=== PATIENT | male | born 1970 | race Two or more races ===

== ENCOUNTER 2020-11-17 06:34 | Outpatient (REF) | payer OTHER, SELFPAY ==
[2020-11-17 07:26] LABS: MANUAL DIFF FLAG NO
[2020-11-17 07:43] LABS: Basophils Percent Auto 0.6 % (0-2); Eosinophils Absolute Auto 0.1 X10*3/uL (0.0-0.4); Eosinophils Percent Auto 1.8 % (0-4); Hematocrit 45.2 % (42-52); Hemoglobin 15.2 g/dl (14.0-18.0); Imm Gran Abs Auto 0.02 X10*3/uL (0.00-0.03); Imm Gran Pct Auto 0.3 % (0.0-0.4); Lymphocytes Absolute Auto 3.5 X10*3/uL (1.2-4.9); Lymphocytes Percent Auto 47.9 % (20-40); Mean Corpuscular HGB Conc 33.6 g/dl (31.0-36.0); Mean Corpuscular Hemoglobin 29.2 pg (27.0-33.0); Mean Corpuscular Volume 86.9 fL (80-98); Mean Platelet Volume 11.5 fL (9.4-12.4); Monocytes Percent Auto 13.1 % (2-11); Neutrophils Absolute Auto 2.6 X10*3/uL (2.0-8.3); Neutrophils Percent Auto 36.3 % (45-73); Platelet Count 229 X10*3/uL (160-400); Red Cell Distribution Width 12.4 % (11.0-16.0); White Blood Count 7.3 X10*3/uL (4.8-10.8)
[2020-11-17 07:51] LABS: Alanine Aminotransferase 29 U/L (0-40); Alkaline Phosphatase 62 U/L (39-117); Anion Gap 12 (12-20); Aspartate Amino Transferase 23 U/L (5-37); Bilirubin Total 0.8 mg/dL (0.0-1.0); Blood Urea Nitrogen 15 mg/dL (9-16); Calcium 9.6 mg/dL (8.4-10.2); Carbon Dioxide 27 mmol/L (22-29); Chloride 104 mmol/L (96-108); Cholesterol 219 mg/dL; Estimated Glomerular Filt Rate > 60; Glucose Fasting 98 mg/dL (60-99); HDL Cholesterol 36 mg/dL; LDL Cholesterol Calculated 143 mg/dl; Potassium 4.3 mmol/L (3.3-5.1); Sodium 139 mmol/L (135-145); Total Protein 6.5 g/dL (6.5-8.0); Triglycerides 203 mg/dL
[2020-11-17 08:16] LABS: TSH reflex Free T4 4.69 uIU/mL (0.32-4.0); Vitamin D 25-OH Total 35.3 ng/mL (>30)
[2020-11-17 08:49] LABS: Prostate Specific Antigen Scr 0.34 ng/mL (<0.05-4.0)
[2020-11-17 11:01] LABS: Glucose Urine UA NEG (NEG); Leukocyte Esterase Urine NEG (NEG); Nitrite Urine NEG (NEG); PH 5.5 (5.0-8.0); Specific Gravity - Urine >= 1.030 (1.005-1.025); Urine Blood NEG (NEG); Urine Ketones NEG (NEG); Urine Protein NEG (NEG-TRACE)
[2020-11-17 11:03] LABS: Appearance Urine CLEAR; Color Urine YELLOW
== END 2020-11-17 06:35 | disposition home or self-care (01) ==
LOC: HO.LAB 06:34
PROVIDERS: PCP Internal Medicine; Visit Provider Internal Medicine
DX: Z00.00 Encounter for general adult medical examination without abnormal findings (principal); Z12.5 Encounter for screening for malignant neoplasm of prostate; E78.00 Pure hypercholesterolemia, unspecified; E55.9 Vitamin D deficiency, unspecified; E66.9 Obesity, unspecified
CPT/HCPCS: 36415; 80053; 80061; 81003; 82306; 84153; 84439; 84443; 85025

== ENCOUNTER 2021-08-06 10:46 | Outpatient (REF) | payer OTHER, SELFPAY ==
[2021-08-06 11:14] LABS: MANUAL DIFF FLAG NO
[2021-08-06 11:54] LABS: Basophils Percent Auto 0.6 % (0-2); Eosinophils Absolute Auto 0.1 X10*3/uL (0.0-0.4); Eosinophils Percent Auto 1.3 % (0-4); Hematocrit 45.1 % (42.0-52.0); Imm Gran Abs Auto 0.02 X10*3/uL (0.00-0.03); Imm Gran Pct Auto 0.4 % (0.0-0.4); Lymphocytes Absolute Auto 2.6 X10*3/uL (1.2-4.9); Lymphocytes Percent Auto 49.5 % (20-40); Mean Corpuscular HGB Conc 33.3 g/dl (31.0-36.0); Mean Corpuscular Hemoglobin 28.7 pg (27.0-33.0); Mean Corpuscular Volume 86.4 fL (80.0-98.0); Mean Platelet Volume 11.6 fL (9.4-12.4); Monocytes Absolute Auto 0.6 X10*3/uL (0.1-1.2); Monocytes Percent Auto 11.8 % (2-11); Neutrophils Absolute Auto 1.9 x10*3/uL (2.0-8.3); Neutrophils Percent Auto 36.4 % (45-73); Platelet Count 244 X10*3/uL (160-400); Red Blood Count 5.22 X10*6/uL (4.60-5.80); Red Cell Distribution Width 12.6 % (11.0-16.0); White Blood Count 5.2 X10*3/uL (4.8-10.8)
[2021-08-06 11:54] LABS: Appearance Urine CLEAR; Color Urine YELLOW; Glucose Urine UA NEG (NEG); Leukocyte Esterase Urine NEG (NEG); Nitrite Urine NEG (NEG); PH 5.5 (5.0-8.0); Specific Gravity - Urine >= 1.030 (1.005-1.025); Urine Blood NEG (NEG); Urine Ketones NEG (NEG); Urine Protein TRACE MG/DL (NEG-TRACE)
[2021-08-06 12:35] LABS: Prostate Specific Antigen Scr 0.34 ng/mL (<0.05-4.0); TSH reflex Free T4 2.94 uIU/mL (0.32-4.0); Vitamin D 25-OH Total 48.2 ng/mL (>30)
[2021-08-06 12:36] LABS: HBS Num1 > 1000.00 mIU/mL (0-7.99); HBc Num1 9.29 S/CO (0.00-0.79); HBsAGNum1 0.24 S/CO (0.00-0.99); HIV AB/AG Nonreactive (Nonreactive); HIV Num 1 0.06 S/CO (0.00-0.99); Hepatitis B Surface Antigen Negative (Negative); ~HepC Num1 0.06 S/CO (0.00-0.79); ~Hepatitis B Surface Antibody REACTIVE (Nonreactive); ~Hepatitis C Antibody Nonreactive (Nonreactive)
[2021-08-06 12:37] LABS: Syphilis Screen Nonreactive (Nonreactive)
[2021-08-06 12:40] LABS: Alanine Aminotransferase 27 U/L (0-40); Albumin Level 4.1 g/dL (3.5-5.0); Alkaline Phosphatase 73 U/L (39-117); Anion Gap 12 (12-20); Aspartate Amino Transferase 18 U/L (5-37); Bilirubin Total 0.4 mg/dL (0.0-1.0); Blood Urea Nitrogen 19 mg/dL (9-16); Calcium 9.7 mg/dL (8.4-10.2); Carbon Dioxide 27 mmol/L (22-29); Chloride 105 mmol/L (96-108); Cholesterol 217 mg/dL; Estimated Glomerular Filt Rate > 60; Glucose Fasting 109 mg/dL (60-99); HDL Cholesterol 31 mg/dL; LDL Cholesterol Calculated 149 mg/dl; Potassium 4.7 mmol/L (3.3-5.1); Sodium 139 mmol/L (135-145); Total Protein 6.6 g/dL (6.5-8.0); Triglycerides 186 mg/dL
[2021-08-06 14:32] LABS: CT PCR NOT DETECTED (Not Detect.); NG PCR NOT DETECTED (Not Detect.)
[2021-08-06 14:34] LABS: HBc Num2 9.59 S/CO; HBc Num3 9.71 S/CO; Hepatitis B Core Antibody Reactive (Nonreactive)
[2021-08-12 16:11] LABS: HSV 1 IgM IFA Negative (Negative); HSV 2 IgM IFA Negative (Negative)
== END 2021-08-06 10:47 | disposition home or self-care (01) ==
LOC: HO.LAB 10:46
PROVIDERS: PCP Internal Medicine; Visit Provider Internal Medicine
DX: Z00.00 Encounter for general adult medical examination without abnormal findings (principal); E78.00 Pure hypercholesterolemia, unspecified; E55.9 Vitamin D deficiency, unspecified; Z20.2 Contact with and (suspected) exposure to infections with a predominantly sexual mode of transmission
CPT/HCPCS: 80053; 80061; 81003; 82306; 84153; 84443; 85025; 86695; 86696; 86704; 86706; 86780; 86803; 87340; 87389; 87491; 87591

== ENCOUNTER 2022-03-15 08:12 | Outpatient (REF) | payer MEDICAID, SELFPAY ==
[2022-03-15 08:33] LABS: MANUAL DIFF FLAG NO
[2022-03-15 09:16] LABS: Basophils Percent Auto 0.5 % (0-2); Eosinophils Absolute Auto 0.1 X10*3/uL (0.0-0.4); Eosinophils Percent Auto 1.1 % (0-4); Hematocrit 48.1 % (42.0-52.0); Hemoglobin 15.5 g/dl (14.0-18.0); Imm Gran Abs Auto 0.02 X10*3/uL (0.00-0.03); Imm Gran Pct Auto 0.3 % (0.0-0.4); Lymphocytes Absolute Auto 2.7 X10*3/uL (1.2-4.9); Lymphocytes Percent Auto 44.4 % (20-40); Mean Corpuscular HGB Conc 32.2 g/dl (31.0-36.0); Mean Platelet Volume 11.2 fL (9.4-12.4); Monocytes Absolute Auto 0.9 X10*3/uL (0.1-1.2); Monocytes Percent Auto 15.3 % (2-11); Neutrophils Absolute Auto 2.4 x10*3/uL (2.0-8.3); Neutrophils Percent Auto 38.4 % (45-73); Platelet Count 232 X10*3/uL (160-400); Red Blood Count 5.53 X10*6/uL (4.60-5.80); Red Cell Distribution Width 12.6 % (11.0-16.0); White Blood Count 6.2 X10*3/uL (4.8-10.8)
[2022-03-15 09:20] LABS: Estimated Average Glucose 108 mg/dL; Hemoglobin A1c % 5.4 %
[2022-03-15 09:43] LABS: Alanine Aminotransferase 24 U/L (0-40); Albumin Level 4.3 g/dL (3.5-5.0); Alkaline Phosphatase 62 U/L (39-117); Anion Gap 18 (12-20); Aspartate Amino Transferase 18 U/L (5-37); Bilirubin Total 0.6 mg/dL (0.0-1.0); Blood Urea Nitrogen 16 mg/dL (9-16); Calcium 9.6 mg/dL (8.4-10.2); Carbon Dioxide 27 mmol/L (22-29); Chloride 101 mmol/L (96-108); Cholesterol 214 mg/dL; Estimated Glomerular Filt Rate > 60; Glucose Fasting 103 mg/dL (60-99); HDL Cholesterol 34 mg/dL; LDL Cholesterol Calculated 126 mg/dl; Potassium 4.6 mmol/L (3.3-5.1); Sodium 141 mmol/L (135-145); Total Protein 6.9 g/dL (6.5-8.0); Triglycerides 272 mg/dL
[2022-03-15 10:06] LABS: Prostate Specific Antigen 0.33 ng/mL (<0.05-4.0); TSH reflex Free T4 3.58 uIU/mL (0.32-4.0); Vitamin D 25-OH Total 34.3 ng/mL (>30)
== END 2022-03-15 08:13 | disposition home or self-care (01) ==
LOC: HO.LAB 08:12
PROVIDERS: PCP Internal Medicine; Visit Provider Internal Medicine
DX: Z12.5 Encounter for screening for malignant neoplasm of prostate (principal); E78.00 Pure hypercholesterolemia, unspecified; N40.1 Benign prostatic hyperplasia with lower urinary tract symptoms; R39.11 Hesitancy of micturition; E55.9 Vitamin D deficiency, unspecified; I10 Essential (primary) hypertension; R73.01 Impaired fasting glucose
CPT/HCPCS: 36415; 80053; 80061; 82306; 83036; 84153; 84443; 85025

== ENCOUNTER 2022-11-16 07:31 | Outpatient (REF) | payer OTHER, SELFPAY ==
[2022-11-16 07:46] LABS: MANUAL DIFF FLAG NO
[2022-11-16 07:52] LABS: Basophils Percent Auto 0.3 % (0-2); Eosinophils Absolute Auto 0.1 X10*3/uL (0.0-0.4); Eosinophils Percent Auto 1.2 % (0-4); Hematocrit 45.7 % (42.0-52.0); Hemoglobin 15.1 g/dl (14.0-18.0); Imm Gran Abs Auto 0.02 X10*3/uL (0.00-0.03); Imm Gran Pct Auto 0.3 % (0.0-0.4); Lymphocytes Absolute Auto 2.8 X10*3/uL (1.2-4.9); Lymphocytes Percent Auto 47.8 % (20-40); Mean Corpuscular Hemoglobin 28.4 pg (27.0-33.0); Mean Corpuscular Volume 86.1 fL (80.0-98.0); Mean Platelet Volume 10.8 fL (9.4-12.4); Monocytes Absolute Auto 0.9 X10*3/uL (0.1-1.2); Monocytes Percent Auto 14.6 % (2-11); Neutrophils Absolute Auto 2.1 x10*3/uL (2.0-8.3); Neutrophils Percent Auto 35.8 % (45-73); Platelet Count 243 X10*3/uL (160-400); Red Blood Count 5.31 X10*6/uL (4.60-5.80); Red Cell Distribution Width 12.7 % (11.0-16.0); White Blood Count 5.8 X10*3/uL (4.8-10.8)
[2022-11-16 08:01] LABS: Estimated Average Glucose 105 mg/dL; Hemoglobin A1c % 5.3 %
[2022-11-16 08:31] LABS: Alanine Aminotransferase 34 U/L (0-40); Alkaline Phosphatase 67 U/L (39-117); Anion Gap 12 (12-20); Aspartate Amino Transferase 26 U/L (5-37); Bilirubin Total 0.7 mg/dL (0.0-1.0); Blood Urea Nitrogen 19 mg/dL (9-16); Calcium 9.3 mg/dL (8.4-10.2); Carbon Dioxide 27 mmol/L (22-29); Chloride 105 mmol/L (96-108); Cholesterol 221 mg/dL; Estimated Glomerular Filt Rate > 60; Glucose Fasting 103 mg/dL (60-99); HDL Cholesterol 32 mg/dL; LDL Cholesterol Calculated 156 mg/dl; Potassium 4.3 mmol/L (3.3-5.1); Sodium 140 mmol/L (135-145); Total Protein 6.5 g/dL (6.5-8.0); Triglycerides 165 mg/dL
[2022-11-16 08:51] LABS: Prostate Specific Antigen 0.31 ng/mL (<0.05-4.0); TSH reflex Free T4 4.38 uIU/mL (0.32-4.0); Vitamin D 25-OH Total 33.4 ng/mL (>30)
[2022-11-16 09:22] LABS: Free T4 (Free Thyroxine) 0.96 ng/dL (0.71-1.85)
[2022-11-16 12:57] LABS: Appearance Urine Clear; Color Urine Yellow; Glucose Urine UA Negative (Negative); Leukocyte Esterase Urine Negative (Negative); Nitrite Urine Negative (Negative); Urine Blood Negative (Negative); Urine Ketones Negative (Negative); Urine Protein Negative (Neg-Trace)
== END 2022-11-16 07:32 | disposition home or self-care (01) ==
LOC: HO.LAB 07:31
PROVIDERS: PCP Internal Medicine; Visit Provider Internal Medicine
DX: Z00.00 Encounter for general adult medical examination without abnormal findings (principal); Z12.5 Encounter for screening for malignant neoplasm of prostate; I10 Essential (primary) hypertension; E78.00 Pure hypercholesterolemia, unspecified; E55.9 Vitamin D deficiency, unspecified; R73.01 Impaired fasting glucose; N40.0 Benign prostatic hyperplasia without lower urinary tract symptoms
CPT/HCPCS: 36415; 80053; 80061; 81003; 82306; 83036; 84153; 84439; 84443; 85025

== ENCOUNTER 2023-01-31 12:43 | Outpatient (AMB) | payer OTHER, SELFPAY ==
[2023-01-31 12:44] VITALS: BP 124/70; PULSE 66; O2SAT 96; BMI 31.4
--- NOTE | 2023-01-31 12:44 | A.OFFPC_ITS ---
Vital Signs 01/31/23 12:44 Height 6 ft 1 in Weight 238 lb BMI 31.4 BP 124/70 Blood Pressure Location Lt brachial Position Sitting Pulse 66 Pulse Source Pulse Oximeter Pulse Oximetry (%) 96 Oxygen Delivery Method Room Air Intake Visit Reasons: PE Bpm Architect Required: No Accompanied by: Self / Same As Patient Allergies No Known Allergies Allergy (Mild, Verified 01/31/23 13:01) NOT APPLICABLE Medication List - Last Reconciled 01/31/23 by Frank Rosenthal MD ascorbate calcium (vitamin C) 500 mg PO DAILY cholecalciferol (vitamin D3) 25 mcg PO DAILY Tobacco use date assessed: 01/31/23 Dental Screening Dental Screen Date: 01/31/23 Did you have a dental visit in the last 12 months?: Yes Did you have a dental problem in the last 6 months where you did not have access to dental care?: No Was dental information given to patient?: Patient has dentist HPI PE HPI Details Patient comes in today for his annual physical examination States that he feels okay He denies any headaches or dizziness Denies any chest pains, no SOB No nausea/vomiting, no abdominal pain No change in bowel habits noted Denies any acute urinary symptoms Had his labs done a few months ago - to discuss his results Had his screening colonoscopy last done with Dr. Anderson on 12/18/2018 - (+) tubular adenoma so he is recommended to get a repeat colonoscopy in 5 years (2023) [facility] Medical History (Updated 01/31/23 @ 13:14 by Frank Rosenthal MD) Gynecomastia Obesity (BMI 30-39.9) Pure hypercholesterolemia Vitamin D deficiency Surgical History (Updated 01/31/23 @ 12:55 by Frank Rosenthal MD) History of breast surgery (~06/2016) History of right knee surgery Hx of colonoscopy (~12/18/18) Hx of tonsillectomy Family History Mother Dementia Paget's disease CVA (cerebral vascular accident) Maternal Grandmother Hypertension Sister Asthma Brother Hypertension Social History Housing: Apartment Alcohol intake: former Patient Tobacco Use Status: Never used Tobacco e-Cigarette/Vaping Use: Never Used Second Hand Smoke Exposure: No service: No Current occupational status: unemployed Cognitive needs: No Hearing needs: No Vision needs: No Questionnaire PHQ-9 Over the last 2 weeks, how often have you been bothered by any of the following problems? 1. Little interest or pleasure in doing things: not at all 2. Feeling down, depressed, or hopeless: not at all 3. Trouble falling or staying asleep, or sleeping too much: not at all 4. Feeling tired or having little energy: not at all 5. Poor appetite or overeating: not at all 6. Feeling bad about yourself - or that you are a failure or have let yourself or your family down: not at all 7. Trouble concentrating on things, such as reading the newspaper or watching television: not at all 8. Moving or speaking so slowly that other people could have noticed. Or the opposite - being so fidgety or restless that you have been moving around a lot more than usual: not at all 9. Thoughts that you would be better off or of hurting yourself in some way: not at all Total score: 0 Depression Screening Interpretation: Negative 07228 - PHQ-9 Billing: Yes Source: Developed by Drs. Manny Gomez, Melanie Maher, John Castañeda and colleagues, with an educational jean-paul from [employer]. Thrive Questionnaire Date Thrive assessed: 01/31/23 I am a: Patient What is your living situation today?: I have a steady place to live Within the past 12 months, did the food you bought not last and you didn't have the money to get more?: Never true Within the past 12 months, did you worry whether your food would run out before you got money to buy more?: Never true Do you have trouble paying for medicines?: No Do you have trouble getting transportation to medical appointments?: No Do you have trouble paying your heating and electricity bill?: No Do you have trouble taking care of your child, family member or friend?: No Do you have trouble with day-to-day activities such as bathing, preparing meals, shopping, managing finances, etc.?: No Are you currently unemployed and looking for a job?: No Are you interested in more education?: No Please select the resources that you would like help with: None Currently or been in a relationship where the following occur: no concerns reported AUDIT C Alcohol Use Questionnaire (AUDIT-C) 1. How often do you have a drink containing alcohol?: Never 3. How often do you have six or more drinks on one occasion?: Never Total Score: 0 Score Reviewed/Action Taken: Yes DONY-7 AMB Questionnaire DONY-7 Date DONY - 7 assessed: 01/31/23 Feeling nervous, anxious, or on edge: 0 = Not at all Not being able to stop or control worryin = Not at all Worrying too much about different things: 0 = Not at all Trouble relaxin = Not at all Being so restless that it is hard to sit still: 0 = Not at all Becoming easily annoyed or irritable: 0 = Not at all Feeling afraid as if something awful might happen: 0 = Not at all Total DONY-7 score (0-4 normal; 5-9 mild; 10-14 moderate; 15-21 severe): 0 Source: Developed by Drs. Manny Gomez, Melanie Maher, John Castañeda and colleagues, with an educational jean-paul from [employer]. Review of Systems Const Denies chills, Denies fatigue, Denies fever(s), Denies headache(s), Denies malaise and Denies weakness Eyes Denies blurry vision, Denies change in vision, Denies irritation and Denies itchy eyes ENT Denies dysphagia, Denies dizziness, Denies otalgia, Denies headache(s), Denies nasal congestion, Denies neck pain, Denies odynophagia and Denies sore throat Card Denies chest pain, Denies rapid heart rate, Denies irregular heart rhythm, Denies palpitations and Denies dyspnea Resp Denies chest congestion, Denies cough, Denies dyspnea and Denies wheezing GI Denies abdominal pain, Denies bloating, Denies constipation, Denies dysphagia, Denies heartburn, Denies diarrhea, Denies nausea, Denies odynophagia and Denies vomiting Denies hematuria, Denies difficulty urinating, Denies dysuria, Denies urinary frequency and Denies urinary urgency Musc Denies back pain, Denies arthralgias, Denies joint swelling, Denies muscle weakness and Denies neck pain Skin/Breast Denies change in pigmentation, Denies lesions, Denies rash and Denies unusual bruising Neuro Denies dizziness, Denies headache(s), Denies paresthesias and Denies weakness Endo Denies fatigue and Denies palpitations Aller/Immun Denies itchy eyes and Denies wheezing Physical exam (Primary Care) Vital Signs: Oxygen Delivery Method Room Air 01/31/23 12:44 BMI result Body Mass Index 31.4 Tobacco/Smoking Status: Tobacco use Status Tobacco use date assessed 08/09/22 08/09/22 13:25 Patient Tobacco Use Status Never used Tobacco 08/09/22 13:25 e-Cigarette/Vaping Use Never Used 08/09/22 13:25 Depression Screening Interpretation: Negative Thrive Assessment: Date of Thrive Assessment Date Thrive assessed 08/09/22 08/09/22 13:25 Currently or been in a relationship where the following occur: no concerns reported Const General: no acute distress, alert and awake Orientation/consciousness: patient oriented x3 HENMT Head: Yes normocephalic and Yes atraumatic Ears: external ears normal, TM's normal bilaterally and EAC's normal General nose exam: No nasal discharge present Face and sinus: Yes normal facial exam and Yes sinuses nontender Teeth and gingiva: dentition normal Throat: Yes posterior oropharynx normal and Yes tonsils normal (no TP conges tion) Eyes Eyelids: Yes eyelids normal Conjunctivae: conjunctivae normal Pupils: Equal, round and reactive pupils present EOM: EOMs intact bilaterally Neck Neck: Yes no lymphadenopathy and Yes supple Thyroid: Thyroid normal Resp Auscultation: clear to auscultation bilaterally, no rales and no wheezes Cardio Rate: regular rate Rhythm: regular rhythm Heart sounds: no murmurs GI Palpation (GI): Soft to palpation, nontender and No hepatosplenomegaly present Auscultation: normal bowel sounds General: Yes no CVA tenderness Back/Spine/Pelvis Back: no CVA tenderness Thoracic/Lumbar Spine: thoracic and lumbar spine normal to inspection Skin Lesions: no lesions Rashes: no rashes Neuro General: patient oriented x3, moves all extremities, no focal motor deficits and CN's II-XI intact bilaterally Cranial nerves: Yes Equal, round and reactive pupils present Cognition (Neuro): normal cognition Gait exam (Neuro): Normal gait present Extrem General: Yes no clubbing, cyanosis or edema Results Reviewed Results Reviewed: Laboratory Tests 11/16/22 11/16/22 11/16/22 07:44 07:44 07:44 WBC 5.8 Hgb 15.1 Hct 45.7 Plt Count 243 Sodium 140 Potassium 4.3 Creatinine 0.92 Estimated GFR > 60 Fasting Glucose 103 H Hemoglobin A1c % 5.3 Calcium 9.3 AST 26 ALT 34 Triglycerides 165 Cholesterol 221 LDL Cholesterol, Calc 156 HDL Cholesterol 32 Prostate Specific Ag 0.31 25-OH Vitamin D Total 33.4 TSH 4.38 H Free T4 0.96 Ur Specific [place] Urine Protein Urine Glucose (UA) Urine Blood 11/16/22 09:10 WBC Hgb Hct Plt Count Sodium Potassium Creatinine Estimated GFR Fasting Glucose Hemoglobin A1c % Calcium AST ALT Triglycerides Cholesterol LDL Cholesterol, Calc HDL Cholesterol Prostate Specific Ag 25-OH Vitamin D Total TSH Free T4 Ur Specific [place] 1.020 Urine Protein Negative Urine Glucose (UA) Negative Urine Blood Negative Assessment and Plan Assessment & Plan (1) Annual physical exam: Code(s): Z00.00 - Encounter for general adult medical examination without abnormal findings Plan: Results of his labs done a few months ago reviewed and discussed with patient He last had his screening colonoscopy done in 11/2018 and is due for repeat colonoscopy in 5 years (2023) due to (+) tubular adenoma on his previous colonoscopy (2) Pure hypercholesterolemia: Code(s): E78.00 - Pure hypercholesterolemia, unspecified Plan: Is advised that his cholesterol levels are still elevated on his recent labs and that his LDL cholesterol has increased from previous and is now at 156 mg/dl Patient would like to continue with diet modification for now and put off being started on cholesterol-lowering medication at this time Reinforced low cholesterol diet - per request, low cholesterol diet info provided to patient Will recheck his labs and fasting lipids in 6 months for follow up (3) Impaired fasting glucose: Code(s): R73.01 - Impaired fasting glucose Plan: FBS was still slightly elevated at 103 mg/dl on his recent labs but his HgbA1c remained normal at 5.3% when checked a few months ago Reinforced low calorie diet/exercise as tolerated (4) Vitamin D deficiency: Code(s): E55.9 - Vitamin D deficiency, unspecified Plan: Corrected - continue Vitamin D3 1000 units QD (5) Elevated TSH: Code(s): R79.89 - Other specified abnormal findings of blood chemistry Plan: TSH level is again slightly elevated but his free T4 level remains normal on his recent labs Patient is clinically euthyroid Will recheck his TFTs in 6 months for follow up (6) Benign prostatic hyperplasia with urinary hesitancy: Code(s): N40.1 - Benign prostatic hyperplasia with lower urinary tract symptoms; R39.11 - Hesitancy of micturition Plan: Serum PSA rechecked a few months ago came out normal again He was previously started on a trial of Tamsulosin 0.4 mg Q HS; patient states that his urinary symptoms did not really improve much with Rx and he stopped taking it several months ago Notes that his urinary symptoms have somehow improved since and he has HAD no problems going to the bathroom Will consider urology referral if symptoms get worse again (7) Obesity (BMI 30-39.9): Code(s): E66.9 - Obesity, unspecified Plan: Reinforced diet/exercise as tolerated/lose weight Plan Follow up in 6 months Orders: Orders Comprehensive [place]. Panel Fast 6 Months E78.00 - Pure hypercholesterolemia, unspecified Lipid Panel 6 Months E78.00 - Pure hypercholesterolemia, unspecified Hemoglobin A1c 6 Months R73.01 - Impaired fasting glucose Free T4 (Free Thyroxine) 6 Months R79.89 - Other specified abnormal findings of blood chemistry Thyroid Stimulating Hormone 6 Months R79.89 - Other specified abnormal findings of blood chemistry Coding Level of Care Code Est Pt Prev Care 40-64y([id number]) Diagnoses Annual physical exam Z00.00 Pure hypercholesterolemia E78.00 Impaired fasting glucose R73.01 Vitamin D deficiency E55.9 Elevated TSH R79.89 Benign prostatic hyperplasia with urinary hesitancy N40.1; R39.11 Obesity (BMI 30-39.9) E66.9
== END 2023-01-31 13:17 | disposition home or self-care (01) ==
PROVIDERS: Visit Provider Internal Medicine
DX: Z00.00 Encounter for general adult medical examination without abnormal findings (principal); E78.00 Pure hypercholesterolemia, unspecified; E55.9 Vitamin D deficiency, unspecified; Z68.31 Body mass index [BMI] 31.0-31.9, adult; R73.01 Impaired fasting glucose; R79.89 Other specified abnormal findings of blood chemistry; N40.1 Benign prostatic hyperplasia with lower urinary tract symptoms; R39.11 Hesitancy of micturition; E66.9 Obesity, unspecified
CPT/HCPCS: 99396

== ENCOUNTER 2023-07-27 08:42 | Outpatient (REF) | payer OTHER, SELFPAY ==
[2023-07-27 09:44] LABS: Estimated Average Glucose 108 mg/dL; Hemoglobin A1c % 5.4 % (<6.0)
[2023-07-27 10:15] LABS: Alanine Aminotransferase 29 U/L (0-40); Alkaline Phosphatase 64 U/L (39-117); Anion Gap 10 (12-20); Aspartate Amino Transferase 19 U/L (5-37); Bilirubin Total 0.6 mg/dL (0.0-1.0); Blood Urea Nitrogen 17 mg/dL (9-16); Calcium 9.3 mg/dL (8.4-10.2); Carbon Dioxide 30 mmol/L (22-29); Chloride 104 mmol/L (96-108); Cholesterol 217 mg/dL (<200); Estimated Glomerular Filt Rate > 60; Glucose Fasting 116 mg/dL (60-99); HDL Cholesterol 32 mg/dL (>40); LDL Cholesterol Calculated 123 mg/dL (<100); Potassium 4.1 mmol/L (3.3-5.1); Sodium 140 mmol/L (135-145); Total Protein 6.8 g/dL (6.5-8.0); Triglycerides 312 mg/dL (<150)
[2023-07-27 10:31] LABS: Thyroid Stimulating Hormone 3.27 uIU/mL (0.32-4.0)
[2023-07-27 13:39] LABS: Appearance Urine Clear; Color Urine Yellow; Glucose Urine UA Negative (Negative); Leukocyte Esterase Urine Negative (Negative); Nitrite Urine Negative (Negative); PH 5.5 (5.0-9.0); Urine Blood Negative (Negative); Urine Ketones Negative (Negative); Urine Protein Negative (Neg-Trace)
== END 2023-07-27 08:43 | disposition home or self-care (01) ==
LOC: HO.LAB 08:42
PROVIDERS: PCP Internal Medicine; Visit Provider Internal Medicine
DX: E78.00 Pure hypercholesterolemia, unspecified (principal); R73.01 Impaired fasting glucose; R79.89 Other specified abnormal findings of blood chemistry
CPT/HCPCS: 36415; 80053; 80061; 81003; 83036; 84439; 84443

== ENCOUNTER 2023-08-03 09:35 | Outpatient (AMB) | payer OTHER, SELFPAY ==
[2023-08-03 10:13] VITALS: BP 116/90; PULSE 66; O2SAT 97; BMI 31.7
--- NOTE | 2023-08-03 10:13 | MHC.PC.OV ---
Vital Signs 08/03/23 10:13 Height 6 ft 1 in Weight 240 lb 4 oz BMI 31.7 BP 116/90 H Blood Pressure Location Lt brachial Position Sitting Pulse 66 Pulse Source Pulse Oximeter Pulse Oximetry (%) 97 Oxygen Delivery Method Room Air Intake Visit Reasons: 6 month f/u Subcontract Administrator Required: No Accompanied by: Self / Same As Patient Allergies No Known Allergies Allergy (Mild, Verified 08/03/23 10:50) NOT APPLICABLE Medication List - Last Reconciled 08/03/23 by Frank Rosenthal MD ascorbate calcium (vitamin C) 500 mg PO DAILY cholecalciferol (vitamin D3) 25 mcg PO DAILY Tobacco use date assessed: 08/03/23 Dental Screening Dental Screen Date: 08/03/23 Did you have a dental visit in the last 12 months?: Yes Did you have a dental problem in the last 6 months where you did not have access to dental care?: No Was dental information given to patient?: Patient has dentist HPI 6 month f/u HPI Details Patient comes in today for his follow up visit States that he feels okay He denies any headaches or dizziness Denies any chest pains, no shortness of breath No nausea/vomiting, no abdominal pain No change in bowel habits noted Had his follow-up labs done last week - to discuss his results [facility] Medical History Gynecomastia Obesity (BMI 30-39.9) Vitamin D deficiency Pure hypercholesterolemia Surgical History Hx of colonoscopy (~12/18/18) History of breast surgery (~06/2016) History of right knee surgery Hx of tonsillectomy Family History Mother Dementia Paget's disease CVA (cerebral vascular accident) Maternal Grandmother Hypertension Sister Asthma Brother Hypertension Social History Housing: Apartment Alcohol intake: former Patient Tobacco Use Status: Never used Tobacco e-Cigarette/Vaping Use: Never Used Second Hand Smoke Exposure: No service: No Current occupational status: unemployed Cognitive needs: No Hearing needs: No Vision needs: No Questionnaire PHQ-9 Over the last 2 weeks, how often have you been bothered by any of the following problems? 1. Little interest or pleasure in doing things: not at all 2. Feeling down, depressed, or hopeless: not at all 3. Trouble falling or staying asleep, or sleeping too much: not at all 4. Feeling tired or having little energy: not at all 5. Poor appetite or overeating: not at all 6. Feeling bad about yourself - or that you are a failure or have let yourself or your family down: not at all 7. Trouble concentrating on things, such as reading the newspaper or watching television: not at all 8. Moving or speaking so slowly that other people could have noticed. Or the opposite - being so fidgety or restless that you have been moving around a lot more than usual: not at all 9. Thoughts that you would be better off or of hurting yourself in some way: not at all Total score: 0 Depression Screening Interpretation: Negative Depression Screening Done: Yes 46379 - PHQ-9 Billing: Yes Source: Developed by Drs. Manny Gomez, Melanie Maher, John Castañeda and colleagues, with an educational jean-paul from [employer]. Thrive Questionnaire Date Thrive assessed: 08/03/23 I am a: Patient What is your living situation today?: I have a steady place to live Within the past 12 months, did the food you bought not last and you didn't have the money to get more?: Never true Within the past 12 months, did you worry whether your food would run out before you got money to buy more?: Never true Do you have trouble paying for medicines?: No Do you have trouble getting transportation to medical appointments?: No Do you have trouble paying your heating and electricity bill?: No Do you have trouble taking care of your child, family member or friend?: No Do you have trouble with day-to-day activities such as bathing, preparing meals, shopping, managing finances, etc.?: No Are you currently unemployed and looking for a job?: No Are you interested in more education?: No Please select the resources that you would like help with: None Currently or been in a relationship where the following occur: no concerns reported THRIVE Score: 0 AUDIT C Alcohol Use Questionnaire (AUDIT-C) 1. How often do you have a drink containing alcohol?: Never 3. How often do you have six or more drinks on one occasion?: Never Total Score: 0 Score Reviewed/Action Taken: Yes DONY-7 AMB Questionnaire DONY-7 Date DONY - 7 assessed: 08/03/23 Feeling nervous, anxious, or on edge: 0 = Not at all Not being able to stop or control worryin = Not at all Worrying too much about different things: 0 = Not at all Trouble relaxin = Not at all Being so restless that it is hard to sit still: 0 = Not at all Becoming easily annoyed or irritable: 0 = Not at all Feeling afraid as if something awful might happen: 0 = Not at all Total DONY-7 score (0-4 normal; 5-9 mild; 10-14 moderate; 15-21 severe): 0 Source: Developed by Drs. Manny Gomez, Melanie Maher, John Castañeda and colleagues, with an educational jean-paul from [employer]. Review of Systems Const Denies chills, Denies fatigue, Denies fever(s) and Denies headache(s) ENT Denies dysphagia, Denies dizziness, Denies otalgia, Denies headache(s), Denies neck pain, Denies odynophagia and Denies sore throat Card Denies chest pain, Denies palpitations and Denies dyspnea Resp Denies cough and Denies dyspnea GI Denies abdominal pain, Denies constipation, Denies dysphagia, Denies heartburn, Denies diarrhea, Denies nausea, Denies odynophagia and Denies vomiting Denies dysuria, Denies nocturia and Denies urinary frequency Musc Denies back pain, Denies arthralgias and Denies neck pain Skin/Breast Denies rash Neuro Denies dizziness and Denies headache(s) Endo Denies fatigue and Denies palpitations Physical exam (Primary Care) Vital Signs: Last Vital Signs Pulse 66 08/03/23 10:13 BP 116/90 H 08/03/23 10:13 Pulse Ox 97 08/03/23 10:13 Oxygen Delivery Method Room Air 08/03/23 10:13 BMI result Body Mass Index 31.7 Tobacco/Smoking Status: Tobacco use Status Tobacco use date assessed 08/03/23 08/03/23 10:14 Patient Tobacco Use Status Never used Tobacco 08/03/23 10:14 e-Cigarette/Vaping Use Never Used 08/03/23 10:14 PHQ-9: PHQ-9 Score PHQ-9: Total score 0 08/03/23 10:53 Depression Screening Interpretation: Negative Thrive Assessment: Date of Thrive Assessment Date Thrive assessed 08/03/23 08/03/23 10:14 Currently or been in a relationship where the following occur: no concerns reported Const General: no acute distress and alert HENMT Ears: TM's normal bilaterally and EAC's normal Throat: Yes posterior oropharynx normal and Yes tonsils normal (no TP congestion) Neck Neck: Yes no lymphadenopathy and Yes supple Resp Auscultation: clear to auscultation bilaterally, no rales and no wheezes Cardio Rate: regular rate Rhythm: regular rhythm Heart sounds: no murmurs GI Palpation (GI): Soft to palpation, nontender and No hepatosplenomegaly present Skin General skin exam: no rashes or lesions noted Extrem General: Yes no clubbing, cyanosis or edema Results Reviewed Results Reviewed: Laboratory Tests 11/16/22 11/16/22 07/27/23 07:44 07:44 09:08 Sodium 140 Potassium 4.1 Creatinine Estimated GFR > 60 Fasting Glucose 116 H Hemoglobin A1c % 5.4 Calcium 9.3 AST 19 ALT 29 Triglycerides 312 H Cholesterol 217 H LDL Cholesterol, Calc 123 H HDL Cholesterol 32 L Prostate Specific Ag 0.31 25-OH Vitamin D Total 33.4 TSH Free T4 Ur Specific [place] Urine Protein Urine Glucose (UA) Urine Blood 07/27/23 07/27/23 07/27/23 09:08 09:08 09:08 Sodium Potassium Creatinine 0.94 Estimated GFR Fasting Glucose Hemoglobin A1c % Calcium AST ALT Triglycerides Cholesterol LDL Cholesterol, Calc HDL Cholesterol Prostate Specific Ag 25-OH Vitamin D Total TSH 3.27 Free T4 0.90 Ur Specific [place] Urine Protein Urine Glucose (UA) Urine Blood 07/27/23 07/27/23 10:34 10:34 Sodium Potassium Creatinine Estimated GFR Fasting Glucose Hemoglobin A1c % Calcium AST ALT Triglycerides Cholesterol LDL Cholesterol, Calc HDL Cholesterol Prostate Specific Ag 25-OH Vitamin D Total TSH Free T4 Ur Specific [place] 1.020 Urine Protein Negative Urine Glucose (UA) Negative Urine Blood Negative Assessment and Plan Assessment & Plan (1) Pure hypercholesterolemia: Code(s): E78.00 - Pure hypercholesterolemia, unspecified Plan: Results of his labs done last week reviewed and discussed with patient - advised that his cholesterol numbers are still elevated but they have improved from previous Patient would like to continue with diet modification alone for now Reinforced low cholesterol diet Will recheck his labs and fasting lipids in 6 months for follow up (2) Impaired fasting glucose: Code(s): R73.01 - Impaired fasting glucose Plan: FBS was still elevated at 116 mg/dl but his HgbA1c remained normal at 5.4% on his labs done last week Reinforced low calorie diet/exercise as tolerated (3) Vitamin D deficiency: Code(s): E55.9 - Vitamin D deficiency, unspecified Plan: Corrected - continue Vitamin D3 1000 units QD (4) Elevated TSH: Code(s): R79.89 - Other specified abnormal findings of blood chemistry Plan: His TSH and free T4 levels are now both normal on his labs done last week Patient is clinically euthyroid Will recheck his TFTs in 6 months for follow up (5) Benign prostatic hyperplasia with urinary hesitancy: Code(s): N40.1 - Benign prostatic hyperplasia with lower urinary tract symptoms; R39.11 - Hesitancy of micturition Plan: Serum PSA rechecked last week came out normal again He was previously started on a trial of Tamsulosin 0.4 mg Q HS; patient states that his urinary symptoms did not really improve much with Rx and he stopped taking it several months ago Notes that his urinary symptoms have improved since and he has HAD no problems going to the bathroom Will consider urology referral if symptoms get worse again (6) Obesity (BMI 30-39.9): Code(s): E66.9 - Obesity, unspecified Plan: Reinforced diet/exercise as tolerated/lose weight (7) Colon cancer screening: Code(s): Z12.11 - Encounter for screening for malignant neoplasm of colon Plan: Patient had his screening colonoscopy last done in 11/[address] Anderson and is due for repeat colonoscopy now - is on a 5 year recall due to tubular adenoma on his previous colonoscopy Plan To return in 6 months for his annual physical examination Orders: Orders Comprehensive [place]. Panel Fast 6 Months E78.00 - Pure hypercholesterolemia, unspecified, Z00.00 - Encounter for general adult medical examination without abnormal findings TSH reflex Free T4 6 Months E78.00 - Pure hypercholesterolemia, unspecified, Z00.00 - Encounter for general adult medical examination without abnormal findings UA CC w/rflx Micro + Cult 6 Months R30.0 - Dysuria, Z00.00 - Encounter for general adult medical examination without abnormal findings Prostate Specific Antigen Scr 6 Months Z00.00 - Encounter for general adult medical examination without abnormal findings Complete Blood Count Auto Diff 6 Months D64.9 - Anemia, unspecified, Z00.00 - Encounter for general adult medical examination without abnormal findings Lipid Panel 6 Months E78.00 - Pure hypercholesterolemia, unspecified, Z00.00 - Encounter for general adult medical examination without abnormal findings Hemoglobin A1c 6 Months R73.01 - Impaired fasting glucose, Z00.00 - Encounter for general adult medical examination without abnormal findings Vitamin D 25-OH Total 6 Months E55.9 - Vitamin D deficiency, unspecified Referrals General Surgery Referral Z12.11 - Encounter for screening for malignant neoplasm of colon Coding Level of Care Code Est Pt Level 4 (22055) Diagnoses Pure hypercholesterolemia E78.00 Impaired fasting glucose R73.01 Vitamin D deficiency E55.9 Elevated TSH R79.89 Benign prostatic hyperplasia with urinary hesitancy N40.1; R39.11 Obesity (BMI 30-39.9) E66.9 Colon cancer screening Z12.11
== END 2023-08-03 11:01 | disposition home or self-care (01) ==
PROVIDERS: PCP Internal Medicine; Visit Provider Internal Medicine
DX: E78.00 Pure hypercholesterolemia, unspecified (principal); R73.01 Impaired fasting glucose; E66.9 Obesity, unspecified; Z68.31 Body mass index [BMI] 31.0-31.9, adult; E55.9 Vitamin D deficiency, unspecified; R79.89 Other specified abnormal findings of blood chemistry; N40.1 Benign prostatic hyperplasia with lower urinary tract symptoms; R39.11 Hesitancy of micturition; Z12.11 Encounter for screening for malignant neoplasm of colon
CPT/HCPCS: 99214

== ENCOUNTER 2023-09-06 10:08 | Outpatient (AMB) | payer OTHER, SELFPAY ==
[2023-09-06 10:16] VITALS: BP 138/91; PULSE 83; BMI 32.7
--- NOTE | 2023-09-06 10:16 | A.OFFVIS_ITS ---
Intake Vital Signs 09/06/23 10:16 Height 6 ft 1 in Weight 248 lb BMI 32.7 BP 138/91 H Blood Pressure Location Rt brachial Position Sitting Pulse 83 Intake Visit Reasons: colonoscopy screening Intake Note: This patient presents for a 5 year recall colonoscopy screening. Was advised by PCP repeat colonoscopy due to previous colonoscopy hx of polyps. Patient c/o: reports no concerns. Denies constipation, hemorrhoids. 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 He had undergone a colonoscopy in 2019. There was a small tubular adenoma removed at level 55 cm. He was recommended to undergo another colonoscopy within 5 years. He currently denies any GI complaints. He says he feels well overall. [facility] Medical History (Updated 09/06/23 @ 11:11 by Anthony Anderson MD) History of adenomatous polyp of colon Gynecomastia Obesity (BMI 30-39.9) Vitamin D deficiency Pure hypercholesterolemia Surgical History Hx of colonoscopy (~12/18/18) History of breast surgery (~06/2016) History of right knee surgery Hx of tonsillectomy Family History Mother Dementia Paget's disease CVA (cerebral vascular accident) Maternal Grandmother Hypertension Sister Asthma Brother Hypertension Social History Housing: Apartment Alcohol intake: former Patient Tobacco Use Status: Never used Tobacco e-Cigarette/Vaping Use: Never Used Second Hand Smoke Exposure: No service: No Current occupational status: unemployed Cognitive needs: No Hearing needs: No Vision needs: No Review of Systems Const Denies chills and Denies fever(s) Card Denies chest pain, Denies dyspnea and Denies dyspnea on exertion Resp Denies cough, Denies dyspnea and Denies dyspnea on exertion GI Denies hematochezia and Denies change in bowel habits Denies hematuria and Denies difficulty urinating Musc Denies back pain and Denies limited range of motion Neuro Denies focal weakness and Denies convulsions Psych Denies depression and Denies mood swings Physical Exam Vital Signs: Last Vital Signs Pulse 83 09/06/23 10:16 BP 138/91 H 09/06/23 10:16 BMI result Body Mass Index 32.7 Const General: comfortable and no acute distress Orientation/consciousness: patient oriented x3 Neck Neck: Yes no lymphadenopathy Resp Auscultation: clear to auscultation bilaterally Cardio Rhythm: regular rhythm GI Palpation (GI): Soft to palpation, nontender and no guarding Neuro General: patient oriented x3 Assessment & Plan Assessment & Plan (1) History of adenomatous polyp of colon: Code(s): Z86.010 - Personal history of colonic polyps Plan: He had a tubular adenoma in 2019. He is here for a follow-up colonoscopy. He understands the technique of the planned procedure. He is aware of the risks including but not limited to bleeding and perforation, as well as the benefits and alternatives. Coding Level of Care Code New Pt Level 3 (61006) Diagnoses History of adenomatous polyp of colon Z86.010
== END 2023-09-06 11:09 | disposition home or self-care (01) ==
PROVIDERS: PCP Internal Medicine; Visit Provider Surgery
DX: Z86.010 Personal history of colon polyps (principal)
CPT/HCPCS: 99203

== ENCOUNTER → 2023-09-06 10:08 | Outpatient (BNVA) | payer OTHER, SELFPAY | PROVIDERS: PCP Internal Medicine; Visit Provider Surgery | DX: Z01.818 Encounter for other preprocedural examination (principal); Z86.010 Personal history of colon polyps | CPT/HCPCS: 99202 ==

== ENCOUNTER 2023-09-10 19:56 | Emergency (ER) | payer OTHER, SELFPAY ==
[2023-09-10 20:31] VITALS: BP 123/82; PULSE 78; RESP 17; TEMP 36.7; O2SAT 96; BMI 31.6
--- NOTE | 2023-09-10 21:36 | PC.NURSE ---
Patient knows dog does not have rabies vaccine.
[2023-09-10 22:45] VITALS: BP 127/90; PULSE 83; RESP 20; TEMP 36.8; O2SAT 97
[2023-09-10] MEDS: Rabies Vaccine, Human Diploid (Imovax) 1 ML VIAL IM (22:45)
[2023-09-10] MEDS: Rabies Immune Globulin/PF 900 UNIT/3 ML VIAL 2176 UNIT IM (23:11)
--- NOTE | 2023-09-10 23:38 | ED_ITS ---
HPI - General Adult General Chief complaint: Animal Bite Stated complaint: Dog bit his 'bum-bum' Time Seen by Provider: 09/10/23 21:52 Source: patient Mode of arrival: ambulatory Limitations: no limitations History of Present Illness HPI narrative: 53-year-old with past medical history of obesity, vitamin-D deficiency, and hyper cholesterolemia presents to the ED for being bit in in the right gluteus elian by his brother's dog. Patient was informed by his brother that the dog is not up-to-date with rabies vaccine. Patient states no other complaint. Patient unaware of last tetanus vaccine. Related Data Home Medications Medication Instructions Recorded Confirmed ascorbate calcium (vitamin C) 500 500 mg PO DAILY 04/08/22 09/06/23 mg tablet cholecalciferol (vitamin D3) 25 25 mcg PO DAILY 04/08/22 09/06/23 mcg (1,000 unit) capsule Previous Rx's Medication Instructions Recorded sodium,potassium,mag sulfates 17.5 See Rx Instructions PO .COMPLEX 09/06/23 gram-3.13 gram-1.6 gram oral soln #354 mL (Suprep Bowel Prep Kit) amoxicillin 875 mg-potassium 1 tab PO Q12H 10 days #20 tabs 09/10/23 clavulanate 125 mg tablet Allergies Allergy/AdvReac Type Severity Reaction Status Date / Time No Known Allergies Allergy Mild NOT Verified 09/06/23 10:18 APPLICABLE Review of Systems 2 Review of Systems: Right buttocks dog bite Yes all other systems are reviewed and are negative PMFSH Past Medical History Medical History (Updated 09/10/23 @ 23:51 by DEENA Linder) History of adenomatous polyp of colon Gynecomastia Obesity (BMI 30-39.9) Vitamin D deficiency Pure hypercholesterolemia Surgical History Hx of colonoscopy (~12/18/18) History of breast surgery (~06/2016) History of right knee surgery Hx of tonsillectomy Family History Family History Mother Dementia Paget's disease CVA (cerebral vascular accident) Maternal Grandmother Hypertension Sister Asthma Brother Hypertension Social History Social History Housing: Apartment Alcohol intake: former Patient Tobacco Use Status: Never used Tobacco e-Cigarette/Vaping Use: Never Used Second Hand Smoke Exposure: No service: No Current occupational status: unemployed Cognitive needs: No Hearing needs: No Vision needs: No Physical Exam ED Vital Signs: Vital Signs - 24 hr 09/10/23 20:31 09/10/23 22:45 09/11/23 00:47 Temperature 98.1 F 98.3 F 98.4 F Pulse Rate 78 83 88 Respiratory Rate 17 20 16 Blood Pressure 123/82 127/90 H 130/70 Pulse Oximetry 96 97 99 Oxygen Delivery Method Room Air Room Air Room Air BMI result Body Mass Index 31.6 Const General: cooperative, healthy appearing, comfortable, no acute distress, well developed, alert, awake and Physically active Orientation/consciousness: oriented to person, oriented to place, oriented to time and patient oriented x3 HENMT Head: Yes normal to inspection, Yes No palpable skull fracture present, Yes normocephalic and Yes atraumatic Eyes General: appearance normal, both eyes and all related structures Neck Neck: Yes normal visual inspection, Yes full ROM, Yes no lymphadenopathy, Yes no meningeal signs, Yes trachea midline, Yes supple, No anterior neck swelling and No tender Chest Chest palpation & inspection: normal inspection of the chest and normal palpation of entire chest wall Resp Effort & Inspection: normal respiratory effort and able to speak in complete sentences Auscultation: clear to auscultation bilaterally Cardio Jugular venous distension: no JVD Heart sounds: S1 normal heart sound present and S2 normal heart sound present GI Inspection: Yes normal to inspection Palpation (GI): Soft to palpation, not firm, nontender, no guarding and not rigid General: Yes no CVA tenderness Back/Spine/Pelvis Back: no CVA tenderness and No back tenderness Back/spine/pelvis image: 2 1. Small bite. Superficial. Negative for active bleeding. Skin Other: Dog bite on right buttock cheek General skin exam: no rashes or lesions noted and elasticity normal Neuro General: oriented to person, oriented to place, oriented to time, patient oriented x3, gait normal, tone normal, moves all extremities, Normal light touch and pain sensation, no meningeal signs, no focal motor deficits, CN's II-XI intact bilaterally and normal sensation to monofilament Extrem General: Yes normal to inspection, Yes full ROM and Yes capillary refill normal Psych Appearance: grossly normal, well kempt and not disheveled Medications Administered Discontinued Medications Generic Name Dose Route Start Last Admin Trade Name Jorge A PRN Reason Stop Dose Admin Diphtheria/Tetanus/Acell Pertussis 0.5 ml 09/10/23 23:05 09/10/23 23:40 Diphth,Pertus(Acell),Tet Adult 0.5 Ml Syringe IM 09/10/23 23:06 0.5 ml .ONCE ONE Administration Rabies Immune Globulin 2,176 unit 09/10/23 22:35 09/10/23 23:11 Rabies Immune Globulin/Pf 900 Unit/3 Ml Vial 20 unit/kg (2176 unit) 09/10/23 22:36 2,176 unit IM Administration ONCE ONE Rabies Vaccine Human Diploid Cell 1 ml 09/10/23 22:35 09/10/23 22:45 Rabies Vaccine, Human Diploid (Imovax) 1 Ml Vial IM 09/10/23 22:36 1 ml .ONCE ONE Administration Medical Decision Making Medical Decision Making MDM Narrative: 53-year-old male with dog bite to right buttock cheek by brother's dog who is not up-to-date with rabies vaccine. Patient agreeable to receive rabies vaccine and tetanus shot. Patient will be discharged with antibiotics. Patient not in any distress. Differential Diagnosis Differential Diagnoses: The differential diagnosis associated with the presentation includes (Dog bite) Independent Historian Clinical information obtained from an independent historian. History obtained from or confirmed by: Other (patient) External Record Review External record reviewed: Other (previous visits) Prescription Management I considered prescription management with: Antibiotic Discharge Plan Discharge Clinical Impression: Dog bite Patient Disposition: Home, Self-Care Instructions: Animal Bite (ED) Additional Instructions: Return to hospital for scheduled rabies vaccinations. Nurse will give you information on where to go for rabies vaccine injections. Return to the ED immediately for any redness, bluish black discoloration, pus discharge, foul odor, fever, chills, or any other concerning symptoms. Recommend follow-up with primary care provider Prescriptions: New amoxicillin-pot clavulanate 875-125 mg tablet 1 tab PO Q12H 10 Days Qty: 20 0RF No Action cholecalciferol (vitamin D3) 25 mcg (1,000 unit) capsule 25 mcg PO DAILY ascorbate calcium (vitamin C) 500 mg tablet 500 mg PO DAILY sodium,potassium,mag sulfates [Suprep Bowel Prep Kit] 17.5-3.13-1.6 gram recon soln See Rx Instructions PO .COMPLEX Qty: 354 0RF Rx Instructions: DILUTE; drink full amount early evening before AND next morning at least 2 hr before procedure; follow w 960 mL water PO Interventions: ED Discharge Assessment Last Done: 09/11/23 00:47 Discharge Date/Time: 09/11/23 00:48 Print Language: Serbian
[2023-09-10] MEDS: Diphth,Pertus(ACell),Tet Adult 0.5 ML SYRINGE IM (23:40)
[2023-09-11 00:47] VITALS: BP 130/70; PULSE 88; RESP 16; TEMP 36.9; O2SAT 99
== END 2023-09-11 00:48 | disposition home or self-care (01) ==
PROVIDERS: Emergency Provider Student in an Organized Health Care Education/Training Program; PCP Internal Medicine
DX: S30.870A Other superficial bite of lower back and pelvis, initial encounter (principal); Z20.3 Contact with and (suspected) exposure to rabies; Z29.14 Encounter for prophylactic rabies immune globulin; W54.0XXA Bitten by dog, initial encounter; Y93.9 Activity, unspecified; Y92.9 Unspecified place or not applicable; Y99.9 Unspecified external cause status
CPT/HCPCS: 90375; 90471; 90472; 90675; 90715; 96372; 99284

== ENCOUNTER 2023-09-13 11:14 | Outpatient (REF) | payer OTHER, SELFPAY ==
[2023-09-13 11:17] VITALS: BP 128/92; PULSE 76; RESP 18; TEMP 36.6; O2SAT 96; BMI 31.7
[2023-09-13] MEDS: Rabies Vaccine, Human Diploid (Imovax) 1 ML VIAL IM (11:31)
== END 2023-09-13 11:15 | disposition home or self-care (01) ==
LOC: HO.MDS 11:14
PROVIDERS: Visit Provider Physician Assistant
DX: Z20.3 Contact with and (suspected) exposure to rabies (principal); T14.8XXD Other injury of unspecified body region, subsequent encounter; W54.0XXD Bitten by dog, subsequent encounter
CPT/HCPCS: 90471; 90675

== ENCOUNTER 2023-09-17 09:48 | Outpatient (REF) | payer OTHER, SELFPAY ==
[2023-09-17 10:04] VITALS: BP 119/85; PULSE 69; RESP 16; TEMP 36.6; O2SAT 98
[2023-09-17] MEDS: Rabies Vaccine, Human Diploid (Imovax) 1 ML VIAL IM (10:12)
== END 2023-09-17 09:49 | disposition home or self-care (01) ==
LOC: HO.MDS 09:48
PROVIDERS: Visit Provider Physician Assistant
DX: Z20.3 Contact with and (suspected) exposure to rabies (principal); T14.8XXD Other injury of unspecified body region, subsequent encounter; W54.0XXD Bitten by dog, subsequent encounter
CPT/HCPCS: 90471; 90675

== ENCOUNTER 2023-09-24 09:34 | Outpatient (REF) | payer OTHER, SELFPAY | END 2023-09-24 09:35 | disposition home or self-care (01) | LOC: HO.MDS 09:34 | PROVIDERS: Visit Provider Physician Assistant | DX: Z20.3 Contact with and (suspected) exposure to rabies (principal); T14.8XXD Other injury of unspecified body region, subsequent encounter; W54.0XXD Bitten by dog, subsequent encounter | CPT/HCPCS: 90471; 90675 ==

== ENCOUNTER 2023-10-20 08:25 | Day surgery (SDC) | payer OTHER, SELFPAY ==
--- NOTE | 2023-10-18 15:02 | HO.ANESPROP2 ---
Documented by User: Rasheeda Phelps NP 10/18/23 15:02 HPI - Anesthesia Eval Consult details Narrative: 53yo M for Colonoscopy, Possible Polypectomy PMFSH Active Problems Active Problems: All Active Problems History of adenomatous polyp of colon (Acute) Colon cancer screening (Acute) Elevated TSH (Acute) Benign prostatic hyperplasia with urinary hesitancy (Acute) Impaired fasting glucose (Acute) Annual physical exam (Acute) Obesity (BMI 30-39.9) (Acute) Vitamin D deficiency (Acute) Pure hypercholesterolemia (Acute) Past Medical History Medical History (Updated 09/21/23 @ 05:28 by Bee Bueno) History of adenomatous polyp of colon Gynecomastia Obesity (BMI 30-39.9) Vitamin D deficiency Pure hypercholesterolemia Family History Family History Mother Dementia Paget's disease CVA (cerebral vascular accident) Maternal Grandmother Hypertension Sister Asthma Brother Hypertension Surgical History Surgical History Hx of colonoscopy (~12/18/18) History of breast surgery (~06/2016) History of right knee surgery Hx of tonsillectomy Social History Social History Housing: Apartment Alcohol intake: former Patient Tobacco Use Status: Never used Tobacco e-Cigarette/Vaping Use: Never Used Second Hand Smoke Exposure: No Use of substances other than those prescribed or required for medical reasons: No Are you DNR?: No Advance Directives: No Advance Directives Information Provided: Yes service: No Current occupational status: unemployed Cognitive needs: No Hearing needs: No Vision needs: No Meds Allergies Allergy/AdvReac Type Severity Reaction Status Date / Time No Known Allergies Allergy Mild NOT Verified 10/20/23 09:21 APPLICABLE Home Medications ?Medication ?Instructions ?Recorded ?Confirmed ?Last Taken ?Type ascorbate calcium (vitamin C) 500 500 mg PO DAILY 04/08/22 10/20/23 10/19/23 History mg tablet cholecalciferol (vitamin D3) 25 25 mcg PO DAILY 04/08/22 10/20/23 10/19/23 History mcg (1,000 unit) capsule Assessment and Plan Assessment Anesthesia Assessment: Chart Reviewed Documented by User: Anna Hill MD 10/20/23 09:56 [facility] Past Medical History Medical History (Updated 09/21/23 @ 05:28 by Bee Bueno) History of adenomatous polyp of colon Gynecomastia Obesity (BMI 30-39.9) Vitamin D deficiency Pure hypercholesterolemia Family History Family History Mother Dementia Paget's disease CVA (cerebral vascular accident) Maternal Grandmother Hypertension Sister Asthma Brother Hypertension Family history of problems with anesthesia: No Surgical History Surgical History Hx of colonoscopy (~12/18/18) History of breast surgery (~06/2016) History of right knee surgery Hx of tonsillectomy History of Problems with Anesthesia: No Social History Social History Housing: Apartment Alcohol intake: former Patient Tobacco Use Status: Never used Tobacco e-Cigarette/Vaping Use: Never Used Second Hand Smoke Exposure: No Use of substances other than those prescribed or required for medical reasons: No Are you DNR?: No Advance Directives: No Advance Directives Information Provided: Yes service: No Current occupational status: unemployed Cognitive needs: No Hearing needs: No Vision needs: No Meds Allergies Allergy/AdvReac Type Severity Reaction Status Date / Time No Known Allergies Allergy Mild NOT Verified 10/20/23 09:21 APPLICABLE Home Medications ?Medication ?Instructions ?Recorded ?Confirmed ?Last Taken ?Type ascorbate calcium (vitamin C) 500 500 mg PO DAILY 04/08/22 10/20/23 10/19/23 History mg tablet cholecalciferol (vitamin D3) 25 25 mcg PO DAILY 04/08/22 10/20/23 10/19/23 History mcg (1,000 unit) capsule Exam Airway Mallampati Class: II (cap top right in back) TM Dist: >3cm Neck ROM: Full Heart: rrr Lungs: cta Assessment and Plan Assessment Anesthesia Assessment: Anesthesia Plan Discussed Final Anesthetic Review Family History of Problems with Anesthesia: No History of Problems with Anesthesia: No NPO: Yes ASA Class: II Final Preanesthetic Review: No Changes in Pt Med Stat, Meds/Allgs Chart Reviewed and Consent Obtained/Reviewed Patient Risk: Low Procedure Risk: Low Anesthetic Plan Anesthetic Plan: MAC: Disposition: Standard PACU
[2023-10-19 06:39] VITALS: BMI 32.7
[2023-10-20 09:20] VITALS: BMI 31.7
[2023-10-20 09:55] VITALS: BP 141/99; PULSE 71; RESP 16; TEMP 36.4; O2SAT 98
[2023-10-20] MEDS: Lactated Ringers 1,000 ML 100 ML IVCONT (09:56)
--- NOTE | 2023-10-20 10:15 | MHC.SHP ---
Pre-Procedural Eval Section A - 24 Hr Update-Section A only Date of Service: 10/20/23 Section B - Complete if H&P > 30 days Chief Complaint: Personal history of colonic polyps Details of Present Illness: Has a history of adenoma in 2019 Relevant Social History: None Present Medications: see Short Stay Collaborative assessment Medical History: Significant History (Elevated TSH, vitamin-D deficiency, BPH) Allergies: Allergies Allergy/AdvReac Type Severity Reaction Status Date / Time No Known Allergies Allergy Mild NOT Verified 10/20/23 09:21 APPLICABLE Review of Systems Sugical H&P ROS: Negative: Constitution, Cardiovascular, Respiratory, Neurological, Psychiatric, Hem-Onc, Allergic/Immunologic, Gastrointestinal, Genitourinary, Musculoskeletal, Integumentary, Endocrine and Eyes/Ears/Nose/Throat Exam Surgical H&P Exam: Normal: HEENT, Normal: Heart, Normal: Lungs, Normal: Extremities, Normal: Abdomen, Normal: Skin and Normal: Neurological Plan Diagnosis/Plan: Unchanged I have reviewed the history and physical and performed a pertinent physical examination on my patient. No changes have occurred unless specified. Time Spent With Patient Time: Total time managing care of this patient today ____ minutes.
--- NOTE | 2023-10-20 10:52 | W.PM.OPN ---
Operative Note Operative Note Date of Service: 10/20/23 Narrative: Preop diagnosis: History of tubular adenoma Postop diagnosis: Normal colonoscopy findings Procedure: Colonoscopy Surgeon: Anthony Anderson MD The patient is a 53-year-old male who had a large tubular adenoma removed 5 years ago on colonoscopy. He is here for follow-up colonoscopy. He understood the technique of the procedure as well as the risks, benefits and alternatives. The patient was brought to the operating room and placed in left lateral decubitus position under monitored anesthesia care. A surgical time-out was done. A full digital rectal exam was done and this did not reveal any significant anal lesions. The tip of the Olympus colonoscope was gently introduced through the anal orifice advanced with insufflation all the way to the cecum. The cecum was intubated. The cecum was identified by visualization of the ileocecal valve as well as the appendiceal orifice. The cecal mucosa was unremarkable. The scope was gradually withdrawn with careful examination of the entire colonic mucosa being done with scope withdrawal. The patient had adequate bowel prep so it was unlikely that any lesion may have been missed. The rectum was reached and there were no lesions seen. The anal canal was unremarkable. The scope was then withdrawn completely with desufflation. The patient tolerated the procedure well. There were no immediate complications. He does not seem to be at above average risk for colon cancer so his next colonoscopy may be in the next 10 years.
[2023-10-20 10:59] VITALS: BP 108/82; PULSE 83; RESP 16; TEMP 36.2; O2SAT 95
[2023-10-20 11:09] VITALS: RESP 16; O2SAT 98
[2023-10-20 11:30] VITALS: BP 134/96; PULSE 67; RESP 16; TEMP 36.5; O2SAT 98
== END 2023-10-20 12:05 | disposition home or self-care (01) ==
PROVIDERS: PCP Internal Medicine; Visit Provider Surgery
PROC: 0DBE8ZZ Excision of Large Intestine, Via Natural or Artificial Opening Endoscopic (ICD-10-PCS; CPT 45378; principal; 2023-10-20 10:20)
DX: Z12.11 Encounter for screening for malignant neoplasm of colon (principal); Z86.010 Personal history of colon polyps; E78.00 Pure hypercholesterolemia, unspecified; E55.9 Vitamin D deficiency, unspecified; N62 Hypertrophy of breast; E66.9 Obesity, unspecified; Z68.32 Body mass index [BMI] 32.0-32.9, adult; Z98.890 Other specified postprocedural states; Z79.899 Other long term (current) drug therapy; Z56.0 Unemployment, unspecified
CPT/HCPCS: 45378; J2704

== ENCOUNTER → 2023-10-20 08:25 | Outpatient (BNV) | payer OTHER, SELFPAY | PROVIDERS: PCP Internal Medicine; Visit Provider Surgery | DX: Z12.11 Encounter for screening for malignant neoplasm of colon (principal); Z86.010 Personal history of colon polyps | CPT/HCPCS: 45378 ==

== ENCOUNTER 2024-01-30 07:42 | Outpatient (REF) | payer OTHER, SELFPAY ==
[2024-01-30 08:20] LABS: Basophils Percent Auto 0.5 % (0-2); Eosinophils Absolute Auto 0.1 X10*3/uL (0.0-0.4); Eosinophils Percent Auto 1.3 % (0-4); Hematocrit 44.5 % (42.0-52.0); Hemoglobin 15.3 g/dl (14.0-18.0); Imm Gran Abs Auto 0.03 X10*3/uL (0.00-0.03); Imm Gran Pct Auto 0.5 % (0.0-0.4); Lymphocytes Absolute Auto 2.6 X10*3/uL (1.2-4.9); Lymphocytes Percent Auto 42.3 % (20-40); MANUAL DIFF FLAG NO; Mean Corpuscular HGB Conc 34.4 g/dl (31.0-36.0); Mean Corpuscular Hemoglobin 29.7 pg (27.0-33.0); Mean Corpuscular Volume 86.2 fL (80.0-98.0); Mean Platelet Volume 10.7 fL (9.4-12.4); Monocytes Percent Auto 15.2 % (2-11); Neutrophils Absolute Auto 2.5 x10*3/uL (2.0-8.3); Neutrophils Percent Auto 40.2 % (45-73); Platelet Count 219 X10*3/uL (160-400); Red Blood Count 5.16 X10*6/uL (4.60-5.80); Red Cell Distribution Width 12.8 % (11.0-16.0); White Blood Count 6.2 X10*3/uL (4.8-10.8)
[2024-01-30 08:35] LABS: Estimated Average Glucose 108 mg/dL; Hemoglobin A1c % 5.4 % (<6.0)
[2024-01-30 08:49] LABS: Alanine Aminotransferase 31 U/L (0-40); Alkaline Phosphatase 76 U/L (39-117); Anion Gap 14 (12-20); Aspartate Amino Transferase 21 U/L (5-37); Bilirubin Total 0.5 mg/dL (0.0-1.0); Blood Urea Nitrogen 14 mg/dL (9-16); Calcium 9.4 mg/dL (8.4-10.2); Carbon Dioxide 29 mmol/L (22-29); Chloride 104 mmol/L (96-108); Cholesterol 145 mg/dL (<200); Estimated Glomerular Filt Rate > 60; Glucose Fasting 106 mg/dL (60-99); HDL Cholesterol 24 mg/dL (>40); LDL Cholesterol Calculated 76 mg/dL (<100); Potassium 4.2 mmol/L (3.3-5.1); Sodium 143 mmol/L (135-145); Total Protein 6.6 g/dL (6.5-8.0); Triglycerides 227 mg/dL (<150)
[2024-01-30 09:04] LABS: TSH reflex Free T4 4.88 uIU/mL (0.32-4.0); Vitamin D 25-OH Total 45.1 ng/mL (>30)
[2024-01-30 10:10] LABS: Free T4 (Free Thyroxine) 0.94 ng/dL (0.71-1.85)
[2024-01-30 10:25] LABS: Appearance Urine Clear; Color Urine Yellow; Glucose Urine UA Negative (Negative); Leukocyte Esterase Urine Negative (Negative); Nitrite Urine Negative (Negative); Urine Blood Negative (Negative); Urine Ketones Negative (Negative); Urine Protein Negative (Neg-Trace)
== END 2024-01-30 07:43 | disposition home or self-care (01) ==
LOC: HO.LAB 07:42
PROVIDERS: PCP Internal Medicine; Visit Provider Internal Medicine
DX: Z00.00 Encounter for general adult medical examination without abnormal findings (principal); D64.9 Anemia, unspecified; E78.00 Pure hypercholesterolemia, unspecified; R30.0 Dysuria; R73.01 Impaired fasting glucose; E55.9 Vitamin D deficiency, unspecified
CPT/HCPCS: 36415; 80053; 80061; 81003; 82306; 83036; 84153; 84439; 84443; 85025

== ENCOUNTER 2024-02-02 08:53 | Outpatient (AMB) | payer OTHER, SELFPAY ==
--- NOTE | 2024-02-02 09:07 | A.OFFPC_ITS ---
Vital Signs 02/02/24 09:08 Height 6 ft 1 in Weight 235 lb 4 oz BMI 31.0 BP 102/70 Blood Pressure Location Lt brachial Position Sitting Pulse 70 Pulse Source Pulse Oximeter Pulse Oximetry (%) 97 Oxygen Delivery Method Room Air Intake Visit Reasons: pe Allergies No Known Allergies Allergy (Mild, Verified 10/20/23 09:21) NOT APPLICABLE Tobacco use date assessed: 08/03/23 Dental Screening Dental Screen Date: 08/03/23 HPI pe HPI Details Patient comes in today for his annual physical examination States that he feels okay He denies any headaches or dizziness Denies any chest pains, no SOB No nausea/vomiting, no abdominal pain No change in bowel habits noted Denies any acute urinary symptoms He had his follow up labs done a few days ago - to discuss his results He had his repeat colonoscopy done in September 2023 - colonoscopy this time was normal and he was recommended repeat colonoscopy in 10 years this time [facility] Medical History History of adenomatous polyp of colon Gynecomastia Obesity (BMI 30-39.9) Vitamin D deficiency Pure hypercholesterolemia Surgical History (Updated 02/02/24 @ 09:16 by Frank Rosenthal MD) Hx of colonoscopy (~10/20/23) Hx of colonoscopy (~12/18/18) History of breast surgery (~06/2016) History of right knee surgery Hx of tonsillectomy Family History Mother Dementia Paget's disease CVA (cerebral vascular accident) Maternal Grandmother Hypertension Sister Asthma Brother Hypertension Social History Housing: Apartment Alcohol intake: former Patient Tobacco Use Status: Never used Tobacco e-Cigarette/Vaping Use: Never Used Second Hand Smoke Exposure: No service: No Current occupational status: unemployed Cognitive needs: No Hearing needs: No Vision needs: No Questionnaire Thrive Questionnaire Date Thrive assessed: 08/03/23 DONY-7 AMB Questionnaire DONY-7 Date DONY - 7 assessed: 08/03/23 Source: Developed by Drs. Manny Gomez, Melanie Maher, John Castañeda and colleagues, with an educational jean-paul from [employer]. Review of Systems Const Denies chills, Denies fatigue, Denies fever(s), Denies headache(s) and Denies weakness Eyes Denies blurry vision, Denies change in vision, Denies irritation and Denies itchy eyes ENT Denies dysphagia, Denies dizziness, Denies otalgia, Denies headache(s), Denies nasal congestion, Denies neck pain, Denies odynophagia and Denies sore throat Card Denies chest pain, Denies palpitations and Denies dyspnea Resp Denies cough, Denies dyspnea and Denies wheezing GI Denies abdominal pain, Denies bloating, Denies constipation, Denies dysphagia, Denies heartburn, Denies diarrhea, Denies nausea, Denies odynophagia and Denies vomiting Denies dysuria, Denies nocturia and Denies urinary frequency Musc Denies back pain, Denies arthralgias and Denies neck pain Skin/Breast Denies lesions and Denies rash Neuro Denies dizziness, Denies headache(s), Denies paresthesias and Denies weakness Psych Denies anxiety and Denies depression Endo Denies fatigue and Denies palpitations Aller/Immun Denies itchy eyes and Denies wheezing Physical exam (Primary Care) Vital Signs: Last Vital Signs Pulse 70 02/02/24 09:08 BP 102/70 02/02/24 09:08 Pulse Ox 97 02/02/24 09:08 Oxygen Delivery Method Room Air 02/02/24 09:08 BMI result Body Mass Index 31.0 Tobacco/Smoking Status: Tobacco use Status Tobacco use date assessed 08/03/23 02/02/24 09:11 Patient Tobacco Use Status Never used Tobacco 02/02/24 09:11 e-Cigarette/Vaping Use Never Used 02/02/24 09:11 Thrive Assessment: Date of Thrive Assessment Date Thrive assessed 08/03/23 02/02/24 09:11 Const General: no acute distress and alert Orientation/consciousness: patient oriented x3 HENMT Head: Yes normocephalic and Yes atraumatic Ears: TM's normal bilaterally and EAC's normal General nose exam: No nasal discharge present Face and sinus: Yes normal facial exam and Yes sinuses nontender Teeth and gingiva: dentition normal Throat: Yes posterior oropharynx normal and Yes tonsils normal (no TP congestion) Eyes Eyelids: Yes eyelids normal Conjunctivae: conjunctivae normal Pupils: Equal, round and reactive pupils present EOM: EOMs intact bilaterally Neck Neck: Yes no lymphadenopathy and Yes supple Thyroid: Thyroid normal Resp Auscultation: clear to auscultation bilaterally, no rales and no wheezes Cardio Rate: regular rate Rhythm: regular rhythm Heart sounds: no murmurs GI Palpation (GI): Soft to palpation and nontender Auscultation: normal bowel sounds General: Yes no CVA tenderness Back/Spine/Pelvis Back: no CVA tenderness Thoracic/Lumbar Spine: No lumbar spinal tenderness Skin Lesions: no lesions Rashes: no rashes Neuro General: patient oriented x3, moves all extremities, no focal motor deficits and CN's II-XI intact bilaterally Cranial nerves: Yes Equal, round and reactive pupils present Cognition (Neuro): normal cognition Gait exam (Neuro): Normal gait present Extrem General: Yes no clubbing, cyanosis or edema Results Reviewed Results Reviewed: Laboratory Tests 01/30/24 01/30/24 01/30/24 07:47 07:58 07:59 WBC 6.2 Hgb 15.3 Hct 44.5 Plt Count 219 Sodium 143 Potassium 4.2 Creatinine 0.88 Estimated GFR > 60 Fasting Glucose 106 H Hemoglobin A1c % 5.4 Calcium 9.4 AST 21 ALT 31 Triglycerides 227 H Cholesterol 145 LDL Cholesterol, Calc 76 HDL Cholesterol 24 L PSA Screen 0.30 25-OH Vitamin D Total 45.1 TSH 4.88 H Free T4 0.94 Ur Specific [place] 1.020 Urine Protein Negative Urine Glucose (UA) Negative Urine Blood Negative Urine Nitrite Negative Ur Leukocyte Esterase Negative Assessment and Plan Assessment & Plan (1) Annual physical exam: Code(s): Z00.00 - Encounter for general adult medical examination without abnormal findings Plan: Results of his labs done a few days ago reviewed and discussed with patient He also had his repeat colonoscopy done with Dr. Anderson in September 2023 - colonoscopy was normal and he was recommended to get a repeat colonoscopy in 10 years this time (2) Pure hypercholesterolemia: Code(s): E78.00 - Pure hypercholesterolemia, unspecified Plan: Patient is advised that his cholesterol numbers have improved significantly from previous on his recent labs this time Reinforced low cholesterol diet Will recheck his labs and fasting lipids in 6 months for follow up (3) Impaired fasting glucose: Code(s): R73.01 - Impaired fasting glucose Plan: His FBS was still slightly elevated at 106 mg/dl but his HgbA1c remained normal at 5.4% on his labs done a few days ago Reinforced low calorie diet/exercise as tolerated (4) Vitamin D deficiency: Code(s): E55.9 - Vitamin D deficiency, unspecified Plan: Continue Vitamin D3 1000 units QD (5) Elevated TSH: Code(s): R7.89 - Other specified abnormal findings of blood chemistry Plan: His TSH is again slightly elevated but his free T4 remained normal on his recent labs Patient is clinically euthyroid Will recheck his TFTs in 6 months for follow up (6) Benign prostatic hyperplasia with urinary hesitancy: Code(s): N40.1 - Benign prostatic hyperplasia with lower urinary tract symptoms; R39.11 - Hesitancy of micturition Plan: His most recent serum PSA level was normal He was previously started on a trial of Tamsulosin 0.4 mg Q HS but states that his urinary symptoms did not really improve much with Rx and he stopped taking it back then Noted that his urinary symptoms have improved since and he has HAD no acute symptoms Will consider urology referral if symptoms flare up again (7) Obesity (BMI 30-39.9): Code(s): E66.9 - Obesity, unspecified Plan: Reinforced diet/exercise as tolerated/lose weight - he has been able to lose a few more pounds since his last visit Plan Follow up in 6 months Orders: Orders Comprehensive [place]. Panel Fast 6 Months E78.00 - Pure hypercholesterolemia, unspecified Lipid Panel 6 Months E78.00 - Pure hypercholesterolemia, unspecified Thyroid Stimulating Hormone 6 Months R7.89 - Other specified abnormal findings of blood chemistry Free T4 (Free Thyroxine) 6 Months R7.89 - Other specified abnormal findings of blood chemistry Coding Level of Care Code Est Pt Prev Care 40-64y(16252) Diagnoses Annual physical exam Z00.00 Pure hypercholesterolemia E78.00 Impaired fasting glucose R73.01 Vitamin D deficiency E55.9 Elevated TSH R79.89 Benign prostatic hyperplasia with urinary hesitancy N40.1; R39.11 Obesity (BMI 30-39.9) E66.9
[2024-02-02 09:08] VITALS: BP 102/70; PULSE 70; O2SAT 97; BMI 31.0
== END 2024-02-02 09:27 | disposition home or self-care (01) ==
PROVIDERS: PCP Internal Medicine; Visit Provider Internal Medicine
DX: Z00.00 Encounter for general adult medical examination without abnormal findings (principal); E78.00 Pure hypercholesterolemia, unspecified; R73.01 Impaired fasting glucose; E55.9 Vitamin D deficiency, unspecified; R79.89 Other specified abnormal findings of blood chemistry; N40.1 Benign prostatic hyperplasia with lower urinary tract symptoms; R39.11 Hesitancy of micturition
CPT/HCPCS: 99396

== ENCOUNTER 2024-07-29 10:23 | Outpatient (REF) | payer OTHER, SELFPAY ==
[2024-07-29 10:34] LABS: MANUAL DIFF FLAG NO
[2024-07-29 11:12] LABS: Basophils Percent Auto 0.5 % (0-2); Eosinophils Absolute Auto 0.1 X10*3/uL (0.0-0.4); Eosinophils Percent Auto 1.1 % (0-4); Hematocrit 44.6 % (42.0-52.0); Hemoglobin 14.8 g/dl (14.0-18.0); Imm Gran Abs Auto 0.02 X10*3/uL (0.00-0.03); Imm Gran Pct Auto 0.3 % (0.0-0.4); Lymphocytes Absolute Auto 2.9 X10*3/uL (1.2-4.9); Lymphocytes Percent Auto 45.2 % (20-40); Mean Corpuscular HGB Conc 33.2 g/dl (31.0-36.0); Mean Corpuscular Hemoglobin 28.8 pg (27.0-33.0); Mean Corpuscular Volume 86.9 fL (80.0-98.0); Mean Platelet Volume 11.3 fL (9.4-12.4); Monocytes Absolute Auto 0.8 X10*3/uL (0.1-1.2); Monocytes Percent Auto 12.6 % (2-11); Neutrophils Absolute Auto 2.6 x10*3/uL (2.0-8.3); Neutrophils Percent Auto 40.3 % (45-73); Platelet Count 236 X10*3/uL (160-400); Red Blood Count 5.13 X10*6/uL (4.60-5.80); Red Cell Distribution Width 12.7 % (11.0-16.0); White Blood Count 6.3 X10*3/uL (4.8-10.8)
--- OUTSIDE RECORDS SUMMARY | 2024-07-29 11:14 | XMS_ITS | Clinical Summary ---
Author Organization [employer] [facility] Address [address] [place] [address] [address] [place] [address] Care Team Providers Care Identification Printing Machine Setter Name Role Phone Unavailable Primary Care Provider Unavailabl e Allergies No known active allergies Medications No known medications Active Problems No known active problems Encounters Date Type Department Care Team Description 07/23/2024 11:00 AM EST Office Visit [facility] [address] [place] [address] [phone] [facility] 07/22/2024 Travel from Last 3 Months Social History Tobacco Use Types Packs/Day Years Used Date Smoking Tobacco: Never Smokeless Tobacco: Never Tobacco Cessation:Counseling Given: Not Answered Sex and Gender Information Value Date Recorded Sex Assigned at Male 04/25/2022 10:22 AM EDT Legal Sex Male 10:22 AM EDT Gender Identity Male 04/25/2022 10:22 AM EDT Sexual Orientation Choose not to disclose 2021 10:22 AM EDT Last Filed Vital Signs Vital Sign Reading Time Taken Comments Blood Pressure 150/82 07/23/2024 10:57 AM EST Pulse 73 07/23/2024 10:57 AM EST Temperature - - Respiratory Rate - - Oxygen Saturation - - Inhaled Oxygen Concentration - - Weight - - Height - - Body Mass Index - - Plan of Treatment Upcoming Encounters Date Type Department Care Team (Late st Contact Info) Description 01/22/2025 11:00 AM EDT Office Visit [facility] [address] [place] [address] [phone] [facility] [address] [place] [address] [phone] Health Maintenance Due Date Last Done Comments CT Colonography 1970 Colonoscopy 1970 Colorectal Cancer Screening 1970 Dental X-Ray: Full Mouth 1970 Depression Screening 1970 FIT DNA/Cologuard 1970 FIT 1970 FOBT 1970 HIV Screening 1970 Lipid Panel 1970 SDOH Screening 1970 Sigmoidoscopy 1970 Alcohol/Substance Use Screening 1982 Hepatitis C Screening 02/02/1988 Hepatitis B Vaccines (1 of 3 - 19+ 3-dose series) 1989 Pneumococcal Vaccine: 50+ Years (1 of 1 - PCV) 02/02/2020 Zoster Vaccines (2 of 2) 06/17/2020 04/22/2020 Dental X-Ray: Bitewings 07/13/2024 07/12/2023 Dental Oral Exam 07/19/2024 01/16/2024 Dental Prophylaxis 01/21/2025 07/23/2024, 0 01/16/2024, 07/12/2023, Additional history exists Tobacco Screening 07/23/2025 07/23/2024 DTaP/Tdap/Td Vaccines (2 - Td or Tdap) 09/09/2033 09/10/2023, 07/22/2015 RSV Patients and Patients Aged 60 years or older (1 - 1-dose 75+ series) 2045 Hepatitis A Vaccines Aged Out 08/07/2015 No long er eligible based on patient's age to complete this topic COVID-19 Vaccine Completed 02/21/2024, , 03/17/2022, Additional history exists Influenza Vaccine Completed 02/21/2024, , 06/03/2021, Additional history exists HIB Vaccines Aged Out No longer eligi ble based on patient's age to complete this topic HPV Vaccines Aged Out No longer eligi ble based on patient's age to complete this topic IPV Vaccines Aged Out No longer eligi ble based on patient's age to complete this topic Meningococcal Vaccine Aged Out No sissy steve eligible based on patient's age to complete this topic RSV under 20 months Aged Out No longe r eligible based on patient's age to complete this topic Rotavirus Vaccines Aged Out No longer eligible based on patient's age to complete this topic Procedures Procedure Name Priority Date/Time Associated Diagnosis Comments PROPHYLAXIS - ADULT Routine 07/23/2024 1 1:00 AM EST ADJUNCTIVE GENERAL SERVICES - PROFESSIONAL VISITS - CASE PRESENTATION, SUBSEQUENT TO DETAILED AND EXTENSIVE TREATMENT PLANNING Routine 07/23/2024 11:00 AM EST PERIODIC ORAL EVALUATION - ESTABLISHED PATIENT Routine 01/16/2024 11:00 AM EDT BITEWINGS - 4 RADIOGRAPHIC IMAGES Routine 07/12/2023 11:00 AM EST from Last 3 Months or Most Recently Relevant to Health Maintenance [facility] ST[facility] ADULT Member Subscriber Plan / Payer (Ef fective 2022-Present) Name:Sandip Trent Relation to Subscriber:Self Name:Sandip Trent Payer ID:Not on file Group ID:Not on file Type:Not on file Address: [place] [id number]
--- OUTSIDE RECORDS SUMMARY | 2024-07-29 11:14 | XMS_ITS | Encounter Summary ---
Author Organization [employer] [facility] Address [address] [place] [address] [address] [place] [address] Care Team Providers Care Manager Sharepoint Name Role Phone Unavailable Primary Care Provider Unavailabl e Reason for Visit * Reason Comments Routine Cleaning Encounter Details Date Type Department Care Team (Late st Contact Info) Description 07/23/2024 11:00 AM EST Office Visit [facility] [address], [place] [phone] [facility] [address] [place], [place] [phone] Social History Tobacco Use Types Packs/Day Years Used Date Smoking Tobacco: Never Smokeless Tobacco: Never Sex and Gender Information Value Date Recorded Sex Assigned at Male 04/25/2022 10:22 AM EDT Legal Sex Male 10:22 AM EDT Gender Identity Male 04/25/2022 10:22 AM EDT Sexual Orientation Choose not to disclose 2021 10:22 AM EDT documented as of this encounter Last Filed Vital Signs Vital Sign Reading Time Taken Comments Blood Pressure 150/82 07/23/2024 10:57 AM EST Pulse 73 07/23/2024 10:57 AM EST Temperature - - Respiratory Rate - - Oxygen Saturation - - Inhaled Oxygen Concentration - - Weight - - Height - - Body Mass Index - - documented in this encounter Progress Notes * [facility] - 07/23/2024 11:00 AM EST Patient ID: Sandip Trent is a 54 y.o. male. Time Out: Date: 07/23/2024 Location: [facility] Tooth: all Procedure: Prophylaxis Verified the above with patient, assistant professor of psychology, and provider. Confirmed via patient's chart, intraorally and by radiographs. Process Manager: not applicable Treatment Provided Dental procedures in this visit [id number] - ADJUNCTIVE GENERAL SERVICES - PROFESSIONAL VISITS - CASE PRESENTATION, SUBSEQUENT TO DETAILED AND EXTENSIVE TREATMENT PLANNING (Completed) Service provider: [facility] Billing provider: Shayne Agrawal DDS [id number] - PROPHYLAXIS - ADULT (Completed) Service provider: [facility] Billing provider: Shayne Agrawal DDS Instruments Used: Ultrasonic Scalers, Hand Scalers, and Prophy angle Calculus: Moderate Plaque: Light Stain: Moderate Bleeding: Heavy Gingiva: Perio Charting Completed [place]: Poor OCS: neg findings HNE: neg findings Oral hygiene instructions provided to patient including brushing technique and flossing. Recommendations: Floss daily Recall Frequency: 6 mo NV: Hygienist: [facility] RDH Patient presents with periodontal disease. Calculus present Generalized that can be seen radiographically. BOP: Localized Exudate: Not Present Mobility: none Generalized Probing Depths Range: 4 to 6 mm Recession: Localized ranging from 2 to 3 mm. Gingiva: Inflamed Bone loss visible radiographically: Posteriorly Pre Authorization requested for SRP. SRP treatment needed to promote gingival health, arrest disease progression of periodontal disease and prevent tooth loss. Provider: [facility] documented in this encounter Plan of Treatment Upcoming Encounters Date Type Department Care Team (Late st Contact Info) Description 01/22/2025 11:00 AM EDT Office Visit [facility] [address] [place] [id number] [facility] [address] [place] [phone] Scheduled Orders Name Type Priority Associated Diagnoses Orde r Schedule LL LL PERIODONTAL SCALING AND ROOT PLANING - 1 TO 3 TEETH PER QUADRANT Dental Routine [address] arting 07/23/2024 UR UR PERIODONTAL SCALING AND ROOT PLANING - 1 TO 3 TEETH PER QUADRANT Dental Routine [address] arting 07/23/2024 LR LR PERIODONTAL SCALING AND ROOT PLANING - 1 TO 3 TEETH PER QUADRANT Dental Routine [address] arting 07/23/2024 documented as of this encounter Procedures Procedure Name Priority Date/Time Associated Diagnosis Comments PROPHYLAXIS - ADULT Routine 07/23/2024 1 1:00 AM EST ADJUNCTIVE GENERAL SERVICES - PROFESSIONAL VISITS - CASE PRESENTATION, SUBSEQUENT TO DETAILED AND EXTENSIVE TREATMENT PLANNING Routine 07/23/2024 11:00 AM EST documented in this encounter Visit Diagnoses Not on filedocumented in this encounter
--- OUTSIDE RECORDS SUMMARY | 2024-07-29 11:14 | XMS_ITS | Encounter Summary ---
Author Organization [facility] Address [address] [place] [address] [address] [place] [address] Care Team Providers Care Hardener Helper Name Role Phone Unavailable Primary Care Provider Unavailabl e Encounter Details Date Type Department Care Team (Latest Contact Info) Description 03/28/[address] [facility] CONVERSIONS Dental, Provider, DDS Social History Tobacco Use Types Packs/Day Years Used Date Smoking Tobacco: Never Assessed Sex and Gender Information Value Date Recorded Sex Assigned at Male 04/25/2022 10:22 AM EDT Legal Sex Male 10:22 AM EDT Gender Identity Male 04/25/2022 10:22 AM EDT Sexual Orientation Choose not to disclose 2021 10:22 AM EDT documented as of this encounter Plan of Treatment Upcoming Encounters Date Type Department Care Team (Late st Contact Info) Description 01/22/2025 11:00 AM EDT Office Visit [facility] [address] [place], [place] [phone] [facility] [address] [place], [place] [phone] documented as of this encounter Visit Diagnoses Not on filedocumented in this encounter
--- OUTSIDE RECORDS SUMMARY | 2024-07-29 11:14 | XMS_ITS | Encounter Summary ---
Author Organization [facility] Address [address] [place] [address] [address] [place] [address] Care Team Providers Care Registration Coordinator Name Role Phone Unavailable Primary Care Provider Unavailabl e Encounter Details Date Type Department Care Team (Latest Contact Info) Description 12/14/2020 Abstract [facility] CONVERSIONS Dental, Provider, DDS Social History Tobacco [...] Description 01/22/2025 11:00 AM EDT Office Visit [facility] [address] [place], [place] [phone] [facility] [address] [place], [place] [phone] documented as of this encounter Visit Diagnoses Not on filedocumented in this encounter
--- OUTSIDE RECORDS SUMMARY | 2024-07-29 11:14 | XMS_ITS | Encounter Summary ---
Author Organization [facility] Address [address] [place] [address] [address] [place] [address] Care Team Providers Care Territory Sales Representative Name Role Phone Unavailable Primary Care Provider Unavailabl e Encounter Details Date Type Department Care Team (Latest Contact Info) Description 07/22/2024 Travel Social History Tobacco Use Types Packs/Day Years [...] Description 01/22/2025 11:00 AM EDT Office Visit [facility] [address] [place], [place] [phone] [facility] [address] [place], [place] [phone] documented as of this encounter Visit Diagnoses Not on filedocumented in this encounter
--- OUTSIDE RECORDS SUMMARY | 2024-07-29 11:14 | XMS_ITS | Encounter Summary ---
Author Organization [facility] Address [address] [place] [address] [address] [address] Care Team Providers Care Product Director Name Role Phone Unavailable Primary Care Provider Unavailabl e Encounter Details Date Type Department Care Team (Latest Contact Info) Description 11/20/2018 Abstract [facility] CONVERSIONS Dental, Provider, DDS Social History Tobacco [...] Description 01/22/2025 11:00 AM EDT Office Visit [facility] [address] [place], [place] [phone] [facility] [address] [place], [place] [phone] documented as of this encounter Visit Diagnoses Not on filedocumented in this encounter
[2024-07-29 12:43] LABS: Alanine Aminotransferase 26 U/L (0-40); Alkaline Phosphatase 59 U/L (39-117); Anion Gap 11 (12-20); Aspartate Amino Transferase 22 U/L (5-37); Bilirubin Total 0.4 mg/dL (0.0-1.0); Blood Urea Nitrogen 16 mg/dL (9-16); Calcium 9.1 mg/dL (8.4-10.2); Carbon Dioxide 29 mmol/L (22-29); Chloride 105 mmol/L (96-108); Cholesterol 221 mg/dL (<200); Estimated Glomerular Filt Rate > 60; Free T4 (Free Thyroxine) 0.97 ng/dL (0.71-1.85); Glucose Fasting 113 mg/dL (60-99); HDL Cholesterol 35 mg/dL (>40); LDL Cholesterol Calculated 144 mg/dL (<100); Sodium 141 mmol/L (135-145); Thyroid Stimulating Hormone 4.31 uIU/mL (0.32-4.0); Triglycerides 212 mg/dL (<150)
[2024-07-30 08:08] LABS: Syphilis Screen Nonreactive (Nonreactive)
[2024-07-30 08:46] LABS: HBS Num1 > 1000.00 mIU/mL (0-7.99); HBc Num1 6.17 S/CO (0.00-0.79); HBsAGNum1 0.37 S/CO (0.00-0.99); HIV AB/AG Nonreactive (Nonreactive); HIV Num 1 0.05 S/CO (0.00-0.99); Hepatitis B Surface Antigen Negative (Negative); ~HepC Num1 0.05 S/CO (0.00-0.79); ~Hepatitis B Surface Antibody REACTIVE (Nonreactive); ~Hepatitis C Antibody Nonreactive (Nonreactive)
[2024-07-30 10:14] LABS: HBc Num2 5.98 S/CO; HBc Num3 6.45 S/CO; Hepatitis B Core Antibody Reactive (Nonreactive)
== END 2024-07-29 10:24 | disposition home or self-care (01) ==
LOC: HO.LAB 10:23
PROVIDERS: PCP Internal Medicine; Visit Provider Internal Medicine
DX: E78.00 Pure hypercholesterolemia, unspecified (principal); R79.89 Other specified abnormal findings of blood chemistry; Z20.2 Contact with and (suspected) exposure to infections with a predominantly sexual mode of transmission; D64.9 Anemia, unspecified
CPT/HCPCS: 36415; 80053; 80061; 84439; 84443; 85025; 86704; 86706; 86780; 86803; 87340; 87389

== ENCOUNTER 2024-08-05 10:41 | Outpatient (AMB) | payer OTHER, SELFPAY ==
[2024-08-05 10:46] VITALS: BP 116/78; PULSE 79; O2SAT 96; BMI 31.4
--- NOTE | 2024-08-05 10:46 | A.OFFPC_ITS ---
Vital Signs 08/05/24 10:46 Height 6 ft 1 in Weight 238 lb 6 oz BMI 31.4 BP 116/78 Blood Pressure Location Lt brachial Position Sitting Pulse 79 Pulse Source Pulse Oximeter Pulse Oximetry (%) 96 Oxygen Delivery Method Room Air Intake Visit Reasons: 6mth f/u Patternmaker Bench Required: No Accompanied by: Self / Same As Patient Allergies No Known Allergies Allergy (Mild, Verified 08/05/24 11:09) NOT APPLICABLE Medication List - Last Reconciled 08/05/24 by Frank Rosenthal MD ascorbate calcium (vitamin C) 500 mg PO DAILY cholecalciferol (vitamin D3) 25 mcg PO DAILY Tobacco use date assessed: 08/05/24 Dental Screening Dental Screen Date: 08/05/24 Did you have a dental visit in the last 12 months?: Yes Did you have a dental problem in the last 6 months where you did not have access to dental care?: No Was dental information given to patient?: Patient has dentist HPI 6mth f/u HPI Details Patient comes in today for his follow up visit States that he feels okay but has been having on and off bleeding from his left nostril for the past couple of months He denies any pain in his nose but is concerned about why he would be bleeding only from his left nostril He denies any headaches or dizziness Denies any chest pains, no SOB No nausea/vomiting, no abdominal pain No change in bowel habits noted Adds that he has a couple of raised, dark skin lesions just to the side of his left eye that he would like to have checked out and removed if possible He had his follow up labs done last week - to discuss his results [facility] Medical History History of adenomatous polyp of colon Gynecomastia Obesity (BMI 30-39.9) Vitamin D deficiency Pure hypercholesterolemia Surgical History Hx of colonoscopy (~10/20/23) Hx of colonoscopy (~12/18/18) History of breast surgery (~06/2016) History of right knee surgery Hx of tonsillectomy Family History Mother Dementia Paget's disease CVA (cerebral vascular accident) Maternal Grandmother Hypertension Sister Asthma Brother Hypertension Social History Housing: Apartment Alcohol intake: former Patient Tobacco Use Status: Never used Tobacco e-Cigarette/Vaping Use: Never Used Second Hand Smoke Exposure: No service: No Current occupational status: unemployed Cognitive needs: No Hearing needs: No Vision needs: No Questionnaire PHQ-9 Over the last 2 weeks, how often have you been bothered by any of the following problems? 1. Little interest or pleasure in doing things: not at all 2. Feeling down, depressed, or hopeless: not at all 3. Trouble falling or staying asleep, or sleeping too much: not at all 4. Feeling tired or having little energy: not at all 5. Poor appetite or overeating: not at all 6. Feeling bad about yourself - or that you are a failure or have let yourself or your family down: not at all 7. Trouble concentrating on things, such as reading the newspaper or watching television: not at all 8. Moving or speaking so slowly that other people could have noticed. Or the opposite - being so fidgety or restless that you have been moving around a lot more than usual: not at all 9. Thoughts that you would be better off or of hurting yourself in some way: not at all Total score: 0 Depression Screening Interpretation: Negative Depression Screening Done: Yes 96525 - PHQ-9 Billing: Yes Source: Developed by Drs. Manny Gomez, Melanie Maher, John Castañeda and colleagues, with an educational jean-paul from [employer]. Thrive Questionnaire Date Thrive assessed: 08/05/24 I am a: Patient What is your living situation today?: I have a steady place to live Within the past 12 months, did the food you bought not last and you didn't have the money to get more?: Never true Within the past 12 months, did you worry whether your food would run out before you got money to buy more?: Never true Do you have trouble paying for medicines?: No Do you have trouble getting transportation to medical appointments?: No Do you have trouble paying your heating and electricity bill?: No Do you have trouble taking care of your child, family member or friend?: No Do you have trouble with day-to-day activities such as bathing, preparing meals, shopping, managing finances, etc.?: No Are you currently unemployed and looking for a job?: No Are you interested in more education?: No Please select the resources that you would like help with: None Currently or been in a relationship where the following occur: No concerns reported THRIVE Score: 0 AUDIT C Alcohol Use Questionnaire (AUDIT-C) 1. How often do you have a drink containing alcohol?: Never 3. How often do you have six or more drinks on one occasion?: Never Total Score: 0 Score Reviewed/Action Taken: Yes DONY-7 AMB Questionnaire DONY-7 Date DONY - 7 assessed: 08/05/24 Feeling nervous, anxious, or on edge: 0 = Not at all Not being able to stop or control worryin = Not at all Worrying too much about different things: 0 = Not at all Trouble relaxin = Not at all Being so restless that it is hard to sit still: 0 = Not at all Becoming easily annoyed or irritable: 0 = Not at all Feeling afraid as if something awful might happen: 0 = Not at all Total DONY-7 score (0-4 normal; 5-9 mild; 10-14 moderate; 15-21 severe): 0 Source: Developed by Drs. Manny Gomez, Melanie Maher, John Castañeda and colleagues, with an educational jean-paul from [employer]. Review of Systems Const Denies chills, Denies fatigue, Denies fever(s) and Denies headache(s) ENT Denies dysphagia, Denies dizziness, Denies otalgia, Denies headache(s), Reports epistaxis (recurrent from the left nostril over the past couple of months), Denies neck pain, Denies odynophagia and Denies sore throat Card Denies chest pain, Denies palpitations and Denies dyspnea Resp Denies cough, Denies dyspnea and Denies wheezing GI Denies abdominal pain, Denies constipation, Denies dysphagia, Denies heartburn, Denies diarrhea, Denies nausea, Denies odynophagia and Denies vomiting Denies dysuria, Denies nocturia and Denies urinary frequency Musc Denies back pain, Denies arthralgias and Denies neck pain Skin/Breast Details: (+) couple of raised skin lesions beside the left eye Denies rash Neuro Denies dizziness, Denies headache(s) and Denies paresthesias Psych Denies anxiety and Denies depression Endo Denies fatigue and Denies palpitations Aller/Immun Denies wheezing Physical exam (Primary Care) Vital Signs: Last Vital Signs Pulse 79 08/05/24 10:46 BP 116/78 08/05/24 10:46 Pulse Ox 96 08/05/24 10:46 Oxygen Delivery Method Room Air 08/05/24 10:46 BMI result Body Mass Index 31.4 Tobacco/Smoking Status: Tobacco use Status Tobacco use date assessed 08/05/24 08/05/24 10:54 Patient Tobacco Use Status Never used Tobacco 08/05/24 10:54 e-Cigarette/Vaping Use Never Used 08/05/24 10:54 PHQ-9: PHQ-9 Score PHQ-9: Total score 0 08/05/24 10:54 Depression Screening Interpretation: Negative Thrive Assessment: Date of Thrive Assessment Date Thrive assessed 08/05/24 08/05/24 10:54 Currently or been in a relationship where the following occur: No concerns reported Const General: no acute distress and alert HENMT Ears: TM's normal bilaterally and EAC's normal General nose exam: No nasal discharge present, no epistaxis and no nasal polyps Throat: Yes posterior oropharynx normal and Yes tonsils normal (no TP congestion) Neck Neck: Yes no lymphadenopathy and Yes supple Thyroid: Thyroid normal Resp Auscultation: clear to auscultation bilaterally, no rales and no wheezes Cardio Rate: regular rate Rhythm: regular rhythm Heart sounds: no murmurs GI Palpation (GI): Soft to palpation and nontender Auscultation: normal bowel sounds General: Yes no CVA tenderness Back/Spine/Pelvis Back: no CVA tenderness Thoracic/Lumbar Spine: No lumbar spinal tenderness Skin Other: (+) 2 slightly raised, hyperpigmented skin lesions on the left side of the face just lateral to the left eye Rashes: no rashes Extrem General: Yes no clubbing, cyanosis or edema Results Reviewed Results Reviewed: Laboratory Tests 07/29/24 10:32 WBC 6.3 Hgb 14.8 Hct 44.6 Plt Count 236 Sodium 141 Potassium 4.0 Creatinine 0.79 Estimated GFR > 60 Fasting Glucose 113 H Calcium 9.1 AST 22 ALT 26 Triglycerides 212 H Cholesterol 221 H LDL Cholesterol, Calc 144 H HDL Cholesterol 35 L TSH 4.31 H Free T4 0.97 T.pallidum Ab (EIA) Nonreactive Hep Bs Antigen Negative Hep Bs Antibody REACTIVE Hep B Core Total Ab Reactive Hepatitis C Ab (EIA) Nonreactive HIV 1&2 Ab/P24 Ag 4thGn Nonreactive Coding Level of Care Code Est Pt Level 4 (05994) Diagnoses Pure hypercholesterolemia E78.00 Vitamin D deficiency E55.9 Impaired fasting glucose R73.01 Elevated TSH R79.89 Recurrent epistaxis R04.0 Skin lesions L98.9 Benign prostatic hyperplasia with urinary hesitancy N40.1; R39.11 Obesity (BMI 30-39.9) E66.9 Additional Codes PHQ-9 - 59357 - PHQ-9 Billing: Yes ([id number]) Assessment & Plan Assessment & Plan (1) Pure hypercholesterolemia: Code(s): E78.00 - Pure hypercholesterolemia, unspecified Category: Medical Plan: Results of his labs done last week reviewed and discussed with patient - he is advised that his total and LDL cholesterol levels have increased significantly again from previous Reinforced low cholesterol diet Will have patient recheck his labs and fasting lipids in 6 months for follow up (2) Vitamin D deficiency: Code(s): E55.9 - Vitamin D deficiency, unspecified Category: Medical Plan: Continue Vitamin D3 1000 units QD Will recheck his Vitamin D level in 6 months (3) Impaired fasting glucose: Code(s): R73.01 - Impaired fasting glucose Category: Medical Plan: His FBS is again elevated at 113 mg/dl on his recent labs; HgbA1c was normal at 5.4% when previously checked Reinforced low calorie/low carb diet Will recheck his FBS and HgbA1c in 6 months for follow up (4) Elevated TSH: Code(s): R79.89 - Other specified abnormal findings of blood chemistry Category: Medical Plan: His TSH is still slightly elevated but his free T4 remained normal on his recent labs Patient is clinically euthyroid Will recheck his TFTs in 6 months for follow up (5) Recurrent epistaxis: Code(s): R04.0 - Epistaxis Category: Medical Plan: Have advised patient that this is most likely related to the dry conditions in the winter months We are presently unable to determine if he does have nasal polyps as exam in the office is limited due to inappropriate/inadequate instruments Will refer him to EE for further evaluation and management (6) Skin lesions: Code(s): L98.9 - Disorder of the skin and subcutaneous tissue, unspecified Category: Medical Plan: Will refer him to dermatology for further evaluation and consideration for excision of the raised, hyperpigmented skin lesions besides his left eye (7) Benign prostatic hyperplasia with urinary hesitancy: Code(s): N40.1 - Benign prostatic hyperplasia with lower urinary tract symptoms; R39.11 - Hesitancy of micturition Category: Medical Plan: His serum PSA level was normal when last checked last year He was previously started on a trial of Tamsulosin 0.4 mg Q HS but states that his urinary symptoms did not really improve much with Rx and he stopped taking it back then Noted that his urinary symptoms have improved since and he has HAD no acute symptoms Will consider urology referral if symptoms flare up again (8) Obesity (BMI 30-39.9): Code(s): E66.9 - Obesity, unspecified Category: Medical Plan: Reinforced diet/exercise as tolerated/lose weight Plan To return as scheduled in 6 months for his next annual physical examination Orders: Orders UA CC w/rflx Micro + Cult 6 Months R30.0 - Dysuria, Z00.00 - Encounter for general adult medical examination without abnormal findings Vitamin D 25-OH Total 6 Months E55.9 - Vitamin D deficiency, unspecified, Z00.00 - Encounter for general adult medical examination without abnormal findings Free T4 (Free Thyroxine) 6 Months R79.89 - Other specified abnormal findings of blood chemistry Thyroid Stimulating Hormone 6 Months R79.89 - Other specified abnormal findings of blood chemistry Complete Blood Count Auto Diff 6 Months D64.9 - Anemia, unspecified, Z00.00 - Encounter for general adult medical examination without abnormal findings Comprehensive [place]. Panel Fast 6 Months E78.00 - Pure hypercholesterolemia, unspecified, Z00.00 - Encounter for general adult medical examination without abnormal findings Lipid Panel 6 Months E78.00 - Pure hypercholesterolemia, unspecified, Z00.00 - Encounter for general adult medical examination without abnormal findings Hemoglobin A1c 6 Months R73.01 - Impaired fasting glucose, Z00.00 - Encounter for general adult medical examination without abnormal findings Prostate Specific Antigen 6 Months N40.0 - Benign prostatic hyperplasia without lower urinary tract symptoms, Z00.00 - Encounter for general adult medical examination without abnormal findings Referrals Ear/Nose/Throat Referral R04.0 - Epistaxis Dermatology Referral L98.9 - Disorder of the skin and subcutaneous tissue, unspecified
--- OUTSIDE RECORDS SUMMARY | 2024-08-05 11:42 | XMS_ITS | Encounter Summary ---
Author Organization [facility] Address [address] [place] [address] [address] [place] [address] Care Team Providers Care Beam Press Operator Name Role Phone Unavailable Primary Care Provider Unavailabl e Encounter Details Date Type Department Care Team (Latest Contact Info) Description 12/14/2020 Abstract [facility] CONVERSIONS Dental, Provider, DDS Social History Tobacco [...] Description 01/22/2025 11:00 AM EDT Office Visit [facility] [address] [place], [place] [phone] [facility] [address] [place], [place] [phone] documented as of this encounter Visit Diagnoses Not on filedocumented in this encounter
--- OUTSIDE RECORDS SUMMARY | 2024-08-05 11:42 | XMS_ITS | Encounter Summary ---
Author Organization [facility] [facility] Address [address] [place] [address] [address] [place] [address] Care Team Providers Care Machine Hand Name Role Phone Unavailable Primary Care Provider Unavailabl e Encounter Details Date Type Department Care Team (Latest Contact Info) Description 03/28/2022 Abstract [facility] CONVERSIONS Dental, Provider, DDS Social History [...] Description 01/22/2025 11:00 AM EDT Office Visit [facility] [address] [place], [place] [phone] [facility] [address] [place], [place] [phone] documented as of this encounter Visit Diagnoses Not on filedocumented in this encounter
--- OUTSIDE RECORDS SUMMARY | 2024-08-05 11:42 | XMS_ITS | Encounter Summary ---
Author Organization [facility] Address [address] [place] [address] [address] [address] Care Team Providers Care Material Coordinator Name Role Phone Unavailable Primary Care Provider Unavailabl e Encounter Details Date Type Department Care Team (Latest Contact Info) Description 11/20/2018 Abstract [facility] CONVERSIONS Dental, Provider, DDS Social History [...] Description 01/22/2025 11:00 AM EDT Office Visit [facility] [address] [place], [place] [phone] [address] [facility] [address] [place], [place] [phone] documented as of this encounter Visit Diagnoses Not on filedocumented in this encounter
--- OUTSIDE RECORDS SUMMARY | 2024-08-05 11:42 | XMS_ITS | Clinical Summary ---
Author Organization [employer] [facility] Address [address] [place] [address] 7 [place] [address] Care Team Providers Care Music Professor Name Role Phone Unavailable Primary Care Provider Unavailabl e Allergies No known active allergies Medications No known medications Active Problems No known active problems Encounters Date Type Department Care Team Description 07/23/2024 11:00 AM EST Office Visit [facility] [address] [place] [address] [phone] [facility] 07/22/2024 Travel from Last 3 [...] Description 01/22/2025 11:00 AM EDT Office Visit [facility] [address] [place] [address] [phone] [facility] [address] [place] [address] [phone] Health Maintenance Due Date Last Done Comments [...] Most Recently Relevant to Health Maintenance Insurance [facility] STAND ADULT Member Subscriber Plan / Payer (Ef fective 2022-Present) Name:Sandip Trent Relation to Subscriber:Self Name:Sandip Trent Payer ID:Not on file Group ID:Not on file Type:Not on file Address: [place] [id number]
--- OUTSIDE RECORDS SUMMARY | 2024-08-05 11:42 | XMS_ITS | Encounter Summary ---
Author Organization [employer] [facility] Address [address] [place] [address] [address] [place] [address] Care Team Providers Care Portfolio Management Marketing Name Role Phone Unavailable Primary Care Provider Unavailabl e Reason for Visit * Reason Comments Routine Cleaning Encounter Details Date Type Department Care Team (Late st Contact Info) Description 07/23/2024 11:00 AM EST Office Visit [facility] D[facility] [address] [place], [place] [phone] [facility] [address] [place], [place] [phone] Social History Tobacco Use Types Packs/Day Years [...] y.o. male. Time Out: Date: 07/23/2024 Location: [facility] Tooth: all Procedure: Prophylaxis Verified the above with patient, industrial hire sales assistant, and provider. Confirmed via patient's chart, intraorally and by radiographs. Assistant Signal Maintainer: not applicable Treatment Provided Dental procedures in [...] Description 01/22/2025 11:00 AM EDT Office Visit [facility] [address] [place] [address] [facility] [address] [place] [phone] Scheduled Orders Name Type Priority Associated Diagnoses [...]
--- OUTSIDE RECORDS SUMMARY | 2024-08-05 11:42 | XMS_ITS | Encounter Summary ---
Author Organization [facility] Address [address] [place] [address] [address] [address] Care Team Providers Care Software Test Manager Name Role Phone Unavailable Primary Care Provider [...] Description 01/22/2025 11:00 AM EDT Office Visit [facility] D[facility] [address] [place], [place] [phone] [facility] [address] [place], [place] [phone] documented as of this encounter Visit Diagnoses Not on filedocumented in this encounter
== END 2024-08-05 11:24 | disposition home or self-care (01) ==
PROVIDERS: PCP Internal Medicine; Visit Provider Internal Medicine
DX: E78.00 Pure hypercholesterolemia, unspecified (principal); E55.9 Vitamin D deficiency, unspecified; E66.9 Obesity, unspecified; Z68.31 Body mass index [BMI] 31.0-31.9, adult; R73.01 Impaired fasting glucose; R79.89 Other specified abnormal findings of blood chemistry; R04.0 Epistaxis; L98.9 Disorder of the skin and subcutaneous tissue, unspecified; N40.1 Benign prostatic hyperplasia with lower urinary tract symptoms; R39.11 Hesitancy of micturition

== ENCOUNTER → 2024-08-05 10:41 | Outpatient (BNVA) | payer OTHER, SELFPAY | PROVIDERS: PCP Internal Medicine; Visit Provider Internal Medicine | DX: E78.00 Pure hypercholesterolemia, unspecified (principal); E55.9 Vitamin D deficiency, unspecified; R73.01 Impaired fasting glucose; R79.89 Other specified abnormal findings of blood chemistry; R04.0 Epistaxis; L98.9 Disorder of the skin and subcutaneous tissue, unspecified; N40.1 Benign prostatic hyperplasia with lower urinary tract symptoms; R39.11 Hesitancy of micturition; E66.9 Obesity, unspecified | CPT/HCPCS: 96127; 99212 ==

== ENCOUNTER 2025-02-05 10:20 | Outpatient (AMB) | payer OTHER, SELFPAY ==
--- NOTE | 2025-02-05 10:22 | MHC.PC.OV ---
Vital Signs 02/05/25 10:23 Height 6 ft 1 in Weight 248 lb 2 oz BMI 32.7 BP 124/84 Blood Pressure Location Lt brachial Position Sitting Pulse 76 Pulse Source Pulse Oximeter Pulse Oximetry (%) 97 Oxygen Delivery Method Room Air Intake Visit Reasons: Annual Exam Valuation Manager Required: No Accompanied by: Self / Same As Patient Allergies No Known Allergies Allergy (Mild, Verified 02/05/25 10:44) NOT APPLICABLE Medication List - Last Reconciled 02/05/25 by Frank Rosenthal MD ascorbate calcium (vitamin C) 500 mg PO DAILY cholecalciferol (vitamin D3) 25 mcg PO DAILY Tobacco use date assessed: 02/05/25 Dental Screening Dental Screen Date: 02/05/25 Did you have a dental visit in the last 12 months?: Yes Did you have a dental problem in the last 6 months where you did not have access to dental care?: No Was dental information given to patient?: Patient has dentist HPI Annual Exam HPI Details Patient comes in today for his annual physical examination States that he has been experiencing increased heartburns lately He has been taking some OTC Pepcid PRN for the past few weeks with temporary relief of his symptoms Notes that he has also been experiencing some recurrent pain over the muscles on his right forearm recently as well as recurrent pain over his right lower back He does not recall any recent injury or trauma to his right forearm or right lower back although he states that his mother last month on 01/03/2025 and he has been doing a lot of running around trying to get her things in order States that he has not been able to get his follow-up labs done yet as a result of this He denies any headaches or dizziness Denies any chest pains, no shortness of breath No nausea/vomiting, no abdominal pain No change in bowel habits noted He denies any acute urinary symptoms He had his repeat colonoscopy done last year in September 2023 and is not due for repeat colonoscopy for 10 years (2033) COUNT INCLUDES THE [facility] Medical History (Updated 02/05/25 @ 10:50 by Frank Rosenthal MD) GERD without esophagitis History of adenomatous polyp of colon Gynecomastia Obesity (BMI 30-39.9) Vitamin D deficiency Pure hypercholesterolemia Surgical History Hx of colonoscopy (~10/20/23) Hx of colonoscopy (~12/18/18) History of breast surgery (~06/2016) History of right knee surgery Hx of tonsillectomy Family History Mother Dementia Paget's disease CVA (cerebral vascular accident) Maternal Grandmother Hypertension Sister Asthma Brother Hypertension Social History Housing: Apartment Alcohol intake: former Patient Tobacco Use Status: Never used Tobacco e-Cigarette/Vaping Use: Never Used Second Hand Smoke Exposure: No service: No Current occupational status: unemployed Cognitive needs: No Hearing needs: No Vision needs: No Questionnaire PHQ-9 Over the last 2 weeks, how often have you been bothered by any of the following problems? 1. Little interest or pleasure in doing things: not at all 2. Feeling down, depressed, or hopeless: not at all 3. Trouble falling or staying asleep, or sleeping too much: not at all 4. Feeling tired or having little energy: not at all 5. Poor appetite or overeating: not at all 6. Feeling bad about yourself - or that you are a failure or have let yourself or your family down: not at all 7. Trouble concentrating on things, such as reading the newspaper or watching television: not at all 8. Moving or speaking so slowly that other people could have noticed. Or the opposite - being so fidgety or restless that you have been moving around a lot more than usual: not at all 9. Thoughts that you would be better off or of hurting yourself in some way: not at all Total score: 0 Depression Screening Interpretation: Negative Depression Screening Done: Yes 33744 - PHQ-9 Billing: Yes Source: Developed by Drs. Manny Gomez, Melanie Maher, John Castañeda and colleagues, with an educational jean-paul from [employer]. Thrive Questionnaire Date Thrive assessed: 02/05/25 I am a: Patient What is your living situation today?: I have a steady place to live Within the past 12 months, did the food you bought not last and you didn't have the money to get more?: I choose not to answer this question Within the past 12 months, did you worry whether your food would run out before you got money to buy more?: I choose not to answer this question Do you have trouble paying for medicines?: No Do you have trouble getting transportation to medical appointments?: No Do you have trouble paying your heating and electricity bill?: No Do you have trouble taking care of your child, family member or friend?: No Do you have trouble with day-to-day activities such as bathing, preparing meals, shopping, managing finances, etc.?: No Are you currently unemployed and looking for a job?: I choose not to answer this question Are you interested in more education?: I choose not to answer this question Please select the resources that you would like help with: None Currently or been in a relationship where the following occur: No concerns reported THRIVE Score: 0 AUDIT C Alcohol Use Questionnaire (AUDIT-C) 1. How often do you have a drink containing alcohol?: Never 3. How often do you have six or more drinks on one occasion?: Never Total Score: 0 Score Reviewed/Action Taken: Yes DONY-7 AMB Questionnaire DONY-7 Date DONY - 7 assessed: 02/05/25 Feeling nervous, anxious, or on edge: 0 = Not at all Not being able to stop or control worryin = Not at all Worrying too much about different things: 0 = Not at all Trouble relaxin = Not at all Being so restless that it is hard to sit still: 0 = Not at all Becoming easily annoyed or irritable: 0 = Not at all Feeling afraid as if something awful might happen: 0 = Not at all Total DONY-7 score (0-4 normal; 5-9 mild; 10-14 moderate; 15-21 severe): 0 Source: Developed by Drs. Manny Gomez, Melanie Maher, John Castañeda and colleagues, with an educational jean-paul from [employer]. Review of Systems Const Denies chills, Denies fatigue, Denies fever(s), Denies headache(s), Denies malaise and Denies weakness Eyes Denies blurry vision, Denies change in vision, Denies irritation and Denies itchy eyes ENT Denies dysphagia, Denies dizziness, Denies otalgia, Denies headache(s), Denies nasal congestion, Denies neck pain, Denies odynophagia and Denies sore throat Card Denies chest pain, Denies rapid heart rate, Denies irregular heart rhythm, Denies palpitations and Denies dyspnea Resp Denies chest congestion, Denies cough, Denies dyspnea and Denies wheezing GI Denies abdominal pain, Denies bloating, Denies constipation, Denies dysphagia, Reports heartburn (increased lately), Denies diarrhea, Denies nausea, Denies odynophagia and Denies vomiting Denies hematuria, Denies difficulty urinating, Denies dysuria, Denies urinary frequency and Denies urinary urgency Musc Details: (+) recurrent pain over the right forearm Reports back pain (over the right lower back), Denies arthralgias, Denies joint swelling, Denies muscle weakness and Denies neck pain Skin/Breast Denies change in pigmentation, Denies lesions, Denies rash and Denies unusual bruising Neuro Denies dizziness, Denies headache(s), Denies paresthesias and Denies weakness Endo Denies fatigue and Denies palpitations Aller/Immun Denies itchy eyes and Denies wheezing Physical exam (Primary Care) Vital Signs: Last Vital Signs Pulse 76 02/05/25 10:23 BP 124/84 02/05/25 10:23 Pulse Ox 97 02/05/25 10:23 Oxygen Delivery Method Room Air 02/05/25 10:23 BMI result Body Mass Index 32.7 Tobacco/Smoking Status: Tobacco use Status Tobacco use date assessed 02/05/25 02/05/25 10:30 Patient Tobacco Use Status Never used Tobacco 02/05/25 10:30 e-Cigarette/Vaping Use Never Used 02/05/25 10:30 PHQ-9: PHQ-9 Score PHQ-9: Total score 0 02/05/25 10:49 Depression Screening Interpretation: Negative Thrive Assessment: Date of Thrive Assessment Date Thrive assessed 02/05/25 02/05/25 10:30 Currently or been in a relationship where the following occur: No concerns reported Const General: no acute distress, alert and awake Orientation/consciousness: patient oriented x3 HENMT Head: Yes normocephalic and Yes atraumatic Ears: external ears normal, TM's normal bilaterally and EAC's normal General nose exam: No nasal discharge present Face and sinus: Yes normal facial exam and Yes sinuses nontender Teeth and gingiva: dentition normal Throat: Yes posterior oropharynx normal and Yes tonsils normal (no TP congestion) Eyes Eyelids: Yes eyelids normal Conjunctivae: conjunctivae normal Pupils: Equal, round and reactive pupils present EOM: EOMs intact bilaterally Neck Neck: Yes no lymphadenopathy and Yes supple Thyroid: Thyroid normal Resp Auscultation: clear to auscultation bilaterally, no rales and no wheezes Cardio Rate: regular rate Rhythm: regular rhythm Heart sounds: no murmurs GI Palpation (GI): Soft to palpation, nontender and No hepatosplenomegaly present Auscultation: normal bowel sounds General: Yes no CVA tenderness Back/Spine/Pelvis Back: no CVA tenderness Thoracic/Lumbar Spine: thoracic and lumbar spine normal to inspection and paraspinal muscle tenderness on the right in the upper lumbar, in the mid lumbar and in the lower lumbar Skin Lesions: no lesions Rashes: no rashes Neuro General: patient oriented x3, moves all extremities, no focal motor deficits and CN's II-XI intact bilaterally Cranial nerves: Yes Equal, round and reactive pupils present Cognition (Neuro): normal cognition Gait exam (Neuro): Normal gait present Extrem General: Yes no clubbing, cyanosis or edema Right upper extremity: elbow/forearm Details: tenderness Location: proximal forearm Coding Level of Care Code Est Pt Prev Care 40-64y(96230) Diagnoses Annual physical exam Z00. Pure hypercholesterolemia E78.00 Vitamin D deficiency E55.9 Impaired fasting glucose R73.01 Elevated TSH R79.89 GERD without esophagitis K21.9 Skin lesions L98.9 Benign prostatic hyperplasia with urinary hesitancy N40.1; R39.11 Obesity (BMI 30-39.9) E66.9 Additional Codes PHQ-9 - 98319 - PHQ-9 Billing: Yes ([id number]) Assessment & Plan Assessment & Plan (1) Annual physical exam: Code(s): Z00.00 - Encounter for general adult medical examination without abnormal findings Category: Medical Plan: Patient is instructed to try and get his previously ordered labs done DEBORAH to complete his annual exam He had his repeat colonoscopy done last year in September 2023 and is not due for repeat colonoscopy for 10 years (2033) (2) Pure hypercholesterolemia: Code(s): E78.00 - Pure hypercholesterolemia, unspecified Category: Medical Plan: Reinforced low cholesterol diet - patient is reminded that his total and LDL cholesterol levels have increased significantly again from previous when they were last checked a few months ago so he should try to get his cholesterol levels repeated DEBORAH Reinforced low cholesterol diet Will have patient recheck his labs and fasting lipids again in 6 months for follow up (3) Vitamin D deficiency: Code(s): E55.9 - Vitamin D deficiency, unspecified Category: Medical Plan: Continue Vitamin D3 1000 units QD (4) Impaired fasting glucose: Code(s): R73.01 - Impaired fasting glucose Category: Medical Plan: His FBS was elevated at 113 mg/dl but his HgbA1c was normal at 5.4% when they were previously checked - will recheck these again DEBORAH Reinforced low calorie/low carb diet Will recheck his FBS and HgbA1c in 6 months for follow up (5) Elevated TSH: Code(s): R79.89 - Other specified abnormal findings of blood chemistry Category: Medical Plan: His TSH is still slightly elevated but his free T4 remained normal on his recent labs and will look into these again with his labs when he gets them done Patient is clinically euthyroid Will recheck his TFTs in 6 months for follow up (6) GERD without esophagitis: Code(s): K21.9 - Gastro-esophageal reflux disease without esophagitis Category: Medical Plan: Discussed dietary restrictions and GERD Will start patient on Omeprazole 20 mg QD He is advised that he can continue on Famotidine 20 mg BID PRN for now until Omeprazole becomes effective If his symptoms persist despite Rx, we will then need to consider referral to GI for EGD for further evaluation (7) Skin lesions: Code(s): L98.9 - Disorder of the skin and subcutaneous tissue, unspecified Category: Medical Plan: We previously referred him to dermatology for evaluation and consideration for excision of the raised, hyperpigmented skin lesions besides his left eye (8) Benign prostatic hyperplasia with urinary hesitancy: Code(s): N40.1 - Benign prostatic hyperplasia with lower urinary tract symptoms; R39.11 - Hesitancy of micturition Category: Medical Plan: His serum PSA level was normal when last checked last year He was previously started on a trial of Tamsulosin 0.4 mg Q HS but states that his urinary symptoms did not really improve much with Rx and he stopped taking it back then Noted that his urinary symptoms have improved since and he has HAD no acute symptoms Will consider urology referral if symptoms flare up again (9) Obesity (BMI 30-39.9): Code(s): E66.9 - Obesity, unspecified Category: Medical Plan: Reinforced diet/exercise as tolerated/lose weight - patient is cautioned that he has gained at least 10 lbs or more since his last visit Plan Follow up in 6 months Medications: New famotidine 20 mg PO BEDTIME PRN 30 tabs 1RF heartburns 30 days omeprazole 20 mg PO DAILY 90 caps 1RF 90 days K21.9 - Gastro-esophageal reflux disease without esophagitis
[2025-02-05 10:23] VITALS: BP 124/84; PULSE 76; O2SAT 97; BMI 32.7
--- OUTSIDE RECORDS SUMMARY | 2025-02-05 11:05 | XMS_ITS | Encounter Summary ---
Author Organization [facility] Address [address] [place] [address] Care Team Providers Care Jumpbasting Collar Baster Name Role Phone Unavailable Primary Care Provider Unavailabl e Encounter Details Date Type Department Care Team (Latest Contact Info) Description 11/20/2018 Abstract [facility] Dental, Provider, DDS [...] Upcoming Encounters Date Type Department Care Team ( st Contact Info) Description 03/06/2025 11:00 AM EDT Office Visit [facility] [address], [place] [id number], [place] [phone] documented as of this encounter Visit Diagnoses Not on filedocumented in this encounter
== END 2025-02-05 10:58 | disposition home or self-care (01) ==
LOC: HO.HMCH 10:21
PROVIDERS: PCP Internal Medicine; Visit Provider Internal Medicine
DX: Z00.00 Encounter for general adult medical examination without abnormal findings (principal); E78.00 Pure hypercholesterolemia, unspecified; E66.9 Obesity, unspecified; Z68.32 Body mass index [BMI] 32.0-32.9, adult; E55.9 Vitamin D deficiency, unspecified; R73.01 Impaired fasting glucose; R79.89 Other specified abnormal findings of blood chemistry; K21.9 Gastro-esophageal reflux disease without esophagitis; L98.9 Disorder of the skin and subcutaneous tissue, unspecified; N40.1 Benign prostatic hyperplasia with lower urinary tract symptoms; R39.11 Hesitancy of micturition

== ENCOUNTER 2025-02-05 10:20 | Outpatient (REF) | payer OTHER, SELFPAY ==
[2025-02-05 11:55] LABS: MANUAL DIFF FLAG NO
[2025-02-05 12:15] LABS: Alanine Aminotransferase 48 U/L (0-40); Albumin Level 4.2 g/dL (3.5-5.0); Alkaline Phosphatase 68 U/L (39-117); Anion Gap 10 (12-20); Aspartate Amino Transferase 30 U/L (5-37); Blood Urea Nitrogen 14 mg/dL (9-16); Calcium 9.1 mg/dL (8.4-10.2); Carbon Dioxide 30 mmol/L (22-29); Chloride 106 mmol/L (96-108); Cholesterol 216 mg/dL (<200); Estimated Glomerular Filt Rate > 60; HDL Cholesterol 30 mg/dL (>40); Potassium 4.3 mmol/L (3.3-5.1); Sodium 142 mmol/L (135-145); Total Protein 6.8 g/dL (6.5-8.0); Triglycerides 298 mg/dL (<150)
[2025-02-05 12:16] LABS: Hemoglobin A1C 152.9723 umol/L; Total Hemoglobin (HGBA1C) 3987.7916 umol/L
[2025-02-05 12:26] LABS: Prostate Specific Antigen 0.36 ng/mL (<0.05-4.0)
[2025-02-05 12:30] LABS: Hematocrit 53.1 % (42.0-52.0); Hemoglobin 17.8 g/dl (14.0-18.0); Imm Gran Abs Auto 0.01 X10*3/uL (0.00-0.03); Imm Gran Pct Auto 0.2 % (0.0-0.4); Lymphocytes Absolute Auto 2.1 X10*3/uL (1.2-4.9); Mean Corpuscular HGB Conc 33.5 g/dl (31.0-36.0); Mean Corpuscular Hemoglobin 29.1 pg (27.0-33.0); Mean Corpuscular Volume 86.8 fL (80.0-98.0); NRBC Abs Auto 0.000 X10*3/uL (0.0-0.012); NRBC Pct Auto 0.0 /100WBC (0.0-0.2); Platelet Count 172 X10*3/uL (160-400); Red Blood Count 6.12 X10*6/uL (4.60-5.80); White Blood Count 4.6 X10*3/uL (4.8-10.8)
[2025-02-05 12:32] LABS: Free T4 (Free Thyroxine) 0.88 ng/dL (0.71-1.85); Thyroid Stimulating Hormone 2.83 uIU/mL (0.32-4.0)
[2025-02-05 14:42] LABS: Appearance Urine Clear; Glucose Urine UA Negative (Negative); PH 7.0 (5.0-9.0); Specific Gravity - Urine 1.020 (1.005-1.025)
== END 2025-02-05 10:21 | disposition home or self-care (01) ==
LOC: HO.LAB 10:20
PROVIDERS: PCP Internal Medicine; Visit Provider Internal Medicine
DX: Z00.00 Encounter for general adult medical examination without abnormal findings (principal); D64.9 Anemia, unspecified; R73.01 Impaired fasting glucose; N40.0 Benign prostatic hyperplasia without lower urinary tract symptoms; R30.0 Dysuria; E78.00 Pure hypercholesterolemia, unspecified; E55.9 Vitamin D deficiency, unspecified; R79.89 Other specified abnormal findings of blood chemistry; L98.9 Disorder of the skin and subcutaneous tissue, unspecified; N40.1 Benign prostatic hyperplasia with lower urinary tract symptoms; R39.11 Hesitancy of micturition; E66.9 Obesity, unspecified; Z68.32 Body mass index [BMI] 32.0-32.9, adult; Z71.3 Dietary counseling and surveillance
CPT/HCPCS: 36415; 80053; 80061; 81003; 82306; 83036; 84153; 84439; 84443; 85025; 96127; 99396